=== PATIENT | female | born 1950 | race Caucasian/White ===

== ENCOUNTER 2017-04-20 22:19 | Emergency (ER) | payer MEDICARE, OTHER ==
[2017-04-20] MEDS ORDERED: Aspirin 81 MG Tab.Chew PO ONE (23:05)
[2017-04-20] MEDS ORDERED: Sodium Chloride 0.9% 10 ML Syringe FLUSH PRN (23:05)
[2017-04-20] MEDS ORDERED: Ondansetron 4 MG/2 ML SDV IVPUSH ONE (23:06)
--- NOTE | 2017-04-20 23:14 | EDM.PDOC ---
ED HPI GENERAL MEDICAL PROBLEM - General Chief Complaint: General Stated Complaint: NAUSEA,LEFT SHOULDER PAIN Time Seen by Provider: 04/20/17 22:50 Source of Information: Reports: Patient, Family History Limitations: Reports: No Limitations - History of Present Illness INITIAL COMMENTS - FREE TEXT/NARRATIVE: Lora presents today for complaints of nausea, midsternal chest pain with radiation to left shoulder and scapula that started today at 1630. She reports she drank some decaf coffee with creamer then suddenly developed nausea with the chest pain with feeling of weakness and hypertension of 183/113 per home monitoring device. She also complains of increase dyspnea with exertion the past two weeks. She did not take any medications for her discomfort today. She denies fever, chills, syncope, palpitations. Onset: Today Left Posterior Shoulder Pain Score (Numeric/FACES): 3 - Related Data Allergies Allergy/AdvReac Type Severity Reaction Status Date / Time azithromycin [From Zithromax] Allergy Itching Verified 07/02/14 04:28 peanut Allergy Hives Verified 07/02/14 04:28 Penicillins Allergy Respiratory Verified 07/02/14 04:28 Distress Home Meds: Home Meds Atenolol 12.5 mg PO DAILY 06/26/14 [History] Benzonatate [Benzonatate] 1 tab PO TID 06/26/14 [History] Furosemide [Furosemide] 1 tab PO ASDIRECTED 06/26/14 [History] Pravastatin [Pravachol] 1 tab PO DAILY 06/26/14 [History] Tiotropium [Spiriva Handihaler] 2 puff INH DAILY 06/26/14 [History] Albuterol [Ventolin HFA] 1 puff .XX ASDIRECTED PRN 04/20/17 [History] Fluticasone/Salmeterol [Advair 250-50 Diskus] 1 each IH BID 04/20/17 [History] Ranitidine HCl [Ranitidine] 150 mg PO BID 04/20/17 [History] Past Medical History HEENT History: Reports: Impaired Vision Respiratory History: Reports: Other (See Below) Other Respiratory History: alpha 1 Neurological History: Reports: Migraines - Infectious Disease History Infectious Disease History: Reports: Chicken Pox, Measles, Mumps - Past Surgical History GI Surgical History: Reports: Appendectomy Social & Family History - Tobacco Use Smoking Status *Q: Former Smoker Years of Tobacco use: 10 Used Tobacco, but Quit: Yes Month Tobacco Last Used: many years ago Second Hand Smoke Exposure: No - Caffeine Use Caffeine Use: Reports: Coffee - Alcohol Use Days Per Week of Alcohol Use: 0 - Recreational Drug Use Recreational Drug Use: No ED ROS GENERAL - Review of Systems Review Of Systems: See Below Constitutional: Reports: Decreased Appetite. Denies: Fever, Chills, Malaise, Weakness HEENT: Reports: No Symptoms Respiratory: Reports: Other (Increased SOB with activity. ). Denies: Wheezing, Pleuritic Chest Pain, Cough, Sputum Cardiovascular: Reports: Chest Pain, Dyspnea on Exertion, Other (Patient reports no change in chronic lower extremity edema. ). Denies: Blood Pressure Problem, Lightheadedness, Orthopnea, Palpitations, PND, Syncope Endocrine: Reports: No Symptoms GI/Abdominal: Reports: Abdominal Pain, Decreased Appetite, Nausea, Other (She complains of intermittent epigastric/abdominal pain. ). Denies: Black Stool, Bloody Stool, Constipation, Diarrhea, Difficulty Swallowing, Hematemesis, Vomiting : Reports: No Symptoms Musculoskeletal: Reports: No Symptoms Skin: Denies: Diaphoresis, Bruising, Pruritis, Rash, Erythema, Wound, Lesions Neurological: Denies: Headache, Numbness, Paresthesia, Tingling, Difficulty Walking, Weakness, Gait Disturbance Psychiatric: Reports: No Symptoms Hematologic/Lymphatic: Reports: No Symptoms Immunologic: Reports: No Symptoms ED EXAM, GENERAL - Physical Exam Exam: See Below Free Text/Narrative:: Lora is an alert, oriented 66 year old female presenting today with complaints of sudden onset nausea with chest pain radiating to left shoulder and scapula today at 1630. She denies pain at this time. She does report mild nausea. Exam Limited By: No Limitations General Appearance: Alert, WD/WN, No Apparent Distress Eye Exam: Bilateral Eye: EOMI, Normal Inspection, PERRL Ears: Normal External Exam, Normal Canal, Hearing Grossly Normal, Normal TMs Ear Exam: Bilateral Ear: Auricle Normal, Canal Normal, TM normal Nose: Normal Inspection, Normal Mucosa, No Blood Throat/Mouth: Normal Inspection, Normal Lips, Normal Oropharynx, Normal Voice, No Airway Compromise Head: Atraumatic, Normocephalic Neck: Normal Inspection, Supple, Non-Tender, Full Range of Motion. No: Lymphadenopathy (R), Lymphadenopathy (L) Respiratory/Chest: No Respiratory Distress, No Accessory Muscle Use, Chest Non- Tender, Decreased Breath Sounds. No: Rhonchi, Wheezing Cardiovascular: Normal Peripheral Pulses, Regular Rate, Rhythm, No Edema, No Murmur Peripheral Pulses: 2+: Radial (L), Radial (R), Dorsalis Pedis (L), Dorsalis Pedis (R) GI/Abdominal: Normal Bowel Sounds, Soft, Non-Tender, No Organomegaly, No Distention, No Mass Back Exam: Normal Inspection, Full Range of Motion. No: CVA Tenderness (R), CVA Tenderness (L) Extremities: Normal Inspection, Normal Range of Motion, Non-Tender, Normal Capillary Refill, Pedal Edema, Other (2+ lower bilateral edema, unchaged from chronic status. ) Neurological: Alert, Oriented, CN II-XII Intact, Normal Cognition, Normal Gait, No Motor/Sensory Deficits Psychiatric: Normal Affect, Normal Mood Skin Exam: Warm, Dry, Intact, Normal Color, No Rash Lymphatic: No Adenopathy EKG INTERPRETATION EKG Date: 04/20/17 (2308) Rhythm: NSR EKG Interpretation Comments: Left bundle branch block Course - Vital Signs Last Recorded V/S: Last Vital Signs Temp 37.2 C 04/20/17 22:22 Pulse 59 L 04/21/17 00:21 Resp 23 H 04/21/17 00:19 BP 128/89 04/21/17 00:21 Pulse Ox 95 04/21/17 00:19 - Orders/Labs/Meds Orders: Active Orders 24 hr Category Date Time Status EKG Documentation Completion [RC] ASDIRECTED Care 04/20/17 23:06 Active Chest 2V [CR] Stat Exams 04/20/17 23:05 Taken Sodium Chloride 0.9% [Normal Saline] 1,000 ml Med 04/21/17 00:15 Active IV ASDIRECTED Sodium Chloride 0.9% [Saline Flush] Med 04/20/17 23:05 Active 10 ml FLUSH ASDIRECTED PRN Saline Lock Insert [OM.PC] Routine Oth 04/20/17 23:05 Ordered EKG 12 Lead [EK] Routine Ther 04/20/17 23:05 Ordered Medication Orders Sodium Chloride (Normal Saline) 1,000 mls @ 150 mls/hr IV ASDIRECTED ALEJANDRO Sodium Chloride (Saline Flush) 10 ml FLUSH ASDIRECTED PRN PRN Reason: Keep Vein Open Last Admin: 04/20/17 23:17 Dose: 10 ml Labs: Laboratory Tests 04/20/17 04/20/17 04/21/17 Range/Units 23:16 23:16 00:14 WBC 14.5 H (4.5-11.0) K/uL RBC 5.15 (3.30-5.50) M/uL Hgb 15.7 H D (12.0-15.0) g/dL Hct 45.3 (36.0-48.0) % MCV 88 (80-98) fL MCH 31 (27-31) pg MCHC 35 (32-36) % Plt Count 275 (150-400) K/uL Neut % (Auto) 87 H (36-66) % Lymph % (Auto) 5 L (24-44) % [place] % (Auto) 8 H (2-6) % Eos % (Auto) 1 L (2-4) % Baso % (Auto) 0 (0-1) % Sodium 137 L (140-148) mmol/L Potassium 4.0 (3.6-5.2) mmol/L Chloride 101 (100-108) mmol/L Carbon Dioxide 24 (21-32) mmol/L Anion Gap 16.0 H (5.0-14.0) mmol/L BUN 14 (7-18) mg/dL Creatinine 1.0 (0.6-1.0) mg/dL Est Cr Clr Drug Dosing 46.40 mL/min Estimated GFR (MDRD) 56 L (>60) Glucose 119 H (74-106) mg/dL Calcium 8.8 (8.5-10.1) mg/dL Total Bilirubin 0.9 (0.2-1.0) mg/dL AST 31 (15-37) U/L ALT 34 (12-78) U/L Alkaline Phosphatase 93 (46-116) U/L Troponin I 0.044 (0.000-0.056) ng/mL NT-Pro-B Natriuret Pep 2119 H (5-125) pg/mL Total Protein 7.2 (6.4-8.2) g/dL Albumin 4.0 (3.4-5.0) g/dL Globulin 3.2 (2.3-3.5) g/dL Albumin/Globulin Ratio 1.3 (1.2-2.2) Amylase 46 (25-115) U/L Lipase 104 (73-393) U/L Urine Color Urine Appearance Urine pH (4.5-8.0) Ur Specific [place] (1.008-1.030) Urine Protein (NEGATIVE) mg/dL Urine Glucose (UA) (NEGATIVE) mg/dL Urine Ketones (NEGATIVE) mg/dL Urine Occult Blood (NEGATIVE) Urine Nitrite (NEGATIVE) Urine Bilirubin (NEGATIVE) Urine Urobilinogen (NORMAL) mg/dL Ur Leukocyte Esterase (NEGATIVE) Urine RBC (0-5) Urine WBC (0-5) Ur Epithelial Cells Amorphous Sediment Urine Bacteria Urine Mucus 04/21/17 Range/Units 00:14 WBC (4.5-11.0) K/uL RBC (3.30-5.50) M/uL Hgb (12.0-15.0) g/dL Hct (36.0-48.0) % MCV (80-98) fL MCH (27-31) pg MCHC (32-36) % Plt Count (150-400) K/uL Neut % (Auto) (36-66) % Lymph % (Auto) (24-44) % [place] % (Auto) (2-6) % Eos % (Auto) (2-4) % Baso % (Auto) (0-1) % Sodium (140-148) mmol/L Potassium (3.6-5.2) mmol/L Chloride (100-108) mmol/L Carbon Dioxide (21-32) mmol/L Anion Gap (5.0-14.0) mmol/L BUN (7-18) mg/dL Creatinine (0.6-1.0) mg/dL Est Cr Clr Drug Dosing mL/min Estimated GFR (MDRD) (>60) Glucose (74-106) mg/dL Calcium (8.5-10.1) mg/dL Total Bilirubin (0.2-1.0) mg/dL AST (15-37) U/L ALT (12-78) U/L Alkaline Phosphatase (46-116) U/L Troponin I (0.000-0.056) ng/mL NT-Pro-B Natriuret Pep (5-125) pg/mL Total Protein (6.4-8.2) g/dL Albumin (3.4-5.0) g/dL Globulin (2.3-3.5) g/dL Albumin/Globulin Ratio (1.2-2.2) Amylase (25-115) U/L Lipase (73-393) U/L Urine Color Yellow Urine Appearance Clear Urine pH 6.0 (4.5-8.0) Ur Specific [place] 1.010 (1.008-1.030) Urine Protein Negative (NEGATIVE) mg/dL Urine Glucose (UA) Normal (NEGATIVE) mg/dL Urine Ketones Negative (NEGATIVE) mg/dL Urine Occult Blood Negative (NEGATIVE) Urine Nitrite Negative (NEGATIVE) Urine Bilirubin Negative (NEGATIVE) Urine Urobilinogen Normal (NORMAL) mg/dL Ur Leukocyte Esterase Negative (NEGATIVE) Urine RBC 0-5 (0-5) Urine WBC 0-5 (0-5) Ur Epithelial Cells Few Amorphous Sediment Not seen Urine Bacteria Few Urine Mucus Not seen Lab work reviewed with Irma Moulton NP Heart score 6 Patient and her notified of findings. Will attempt to transfer patient to [facility] for further care. Meds: Medications Generic Name Dose Route Start Last Admin Trade Name Freq PRN Reason Stop Dose Admin Sodium Chloride 1,000 mls @ 150 mls/hr 04/21/17 00:15 Normal Saline IV ASDIRECTED ALEJANDRO Sodium Chloride 10 ml 04/20/17 23:05 04/20/17 23:17 Saline Flush FLUSH 10 ml ASDIRECTED PRN Administration Keep Vein Open Discontinued Medications Generic Name Dose Route Start Last Admin Trade Name Freq PRN Reason Stop Dose Admin Aspirin 324 mg 04/20/17 23:05 04/20/17 23:15 Aspirin PO 04/20/17 23:06 324 mg ONETIME ONE Administration Nitroglycerin 0.4 mg 04/21/17 00:13 04/21/17 00:19 Nitrostat SL 04/21/17 00:14 0.4 mg ONETIME ONE Administration Ondansetron HCl 4 mg 04/20/17 23:06 04/20/17 23:15 Zofran IVPUSH 04/20/17 23:07 4 mg ONETIME ONE Administration - Radiology Interpretation Free Text/Narrative:: Chest x-ray wet read, bilateral lower infiltrates when compared to most recent chest x-ray in 2012. Radiologist read pending. - Re-Assessments/Exams Free Text/Narrative Re-Assessment/Exam: 04/21/17 00:25 Case discussed with Irma Moulton NP. Patient will be transferred to higher level of care. Patient and her in agreement. Departure - Departure Time of Disposition: 00:43 Disposition: DC/Tfer to Acute Hospital 02 Condition: Fair Clinical Impression: Chest pain, rule out acute myocardial infarction - Discharge Information Referrals: Chava Quintero MD [Primary Care Provider] - Forms: ED Department Discharge - My Orders Last 24 Hours: My Active Orders 04/20/17 23:05 Chest 2V [CR] Stat Sodium Chloride 0.9% [Saline Flush] 10 ml FLUSH ASDIRECTED PRN Saline Lock Insert [OM.PC] Routine EKG 12 Lead [EK] Routine 04/20/17 23:06 EKG Documentation Completion [RC] ASDIRECTED - Assessment/Plan Last 24 Hours: My Active Orders 04/20/17 23:05 Chest 2V [CR] Stat Sodium Chloride 0.9% [Saline Flush] 10 ml FLUSH ASDIRECTED PRN Saline Lock Insert [OM.PC] Routine EKG 12 Lead [EK] Routine 04/20/17 23:06 EKG Documentation Completion [RC] ASDIRECTED
[2017-04-21] MEDS ORDERED: Nitroglycerin 0.4 MG Tab.SL SL ONE (00:13)
[2017-04-21] MEDS ORDERED: Sodium Chloride 0.9% 1,000 ML IV SCH (00:15)
[2017-04-21 02:43] VITALS: BP 130/81
--- NOTE | 2017-04-21 08:46 | CR ---
Chest 2V INDICATION: SOB, Chest pain FINDINGS: Comparison 11/02/2014. Mild hyperinflation. Mild cardiac enlargement with pulmonary venous h ypertension, stable. Stable interstitial densities in the lung bases. There is superimposed increased density in the right lung base, worrisome for pneumonia. Follow-up chest x-ray in 4-6 weeks recommended.
== END 2017-04-21 02:20 ==
LOC: JP.ED 22:19
DX: R07.2 Precordial pain (principal); Z87.891 Personal history of nicotine dependence; Z79.899 Other long term (current) drug therapy; Z88.0 Allergy status to penicillin; Z88.1 Allergy status to other antibiotic agents; Z91.012 Allergy to eggs
CPT/HCPCS: 36415; 71020; 80053; 81001; 82150; 83690; 83880; 84484; 85025; 93005; 96361; 96374; 99284; A9270; J2405; J7040; J7050; 93010

== ENCOUNTER 2017-08-20 03:03 | Inpatient (IN) | payer MEDICARE, OTHER ==
[2017-08-20] MEDS ORDERED: Albuterol 0.083% 2.5 MG/3 ML Neb Soln ONE (03:10)
[2017-08-20] MEDS ORDERED: Budesonide 0.5 MG/2 ML Neb Susp NEB ONE (03:20)
[2017-08-20] MEDS ORDERED: Morphine 2 MG/ML Syringe IVPUSH ONE (03:40)
[2017-08-20] MEDS ORDERED: Albuterol 0.083% 2.5 MG/3 ML Neb Soln NEB ONE (03:51)
--- NOTE | 2017-08-20 03:51 | EDM.PDOC ---
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 Tried taking [place] home without relief. No chest pain no abdominal pain nausea or vomiting No fever chills or recent infection However she was seen for tachycardia in the clinic 6 days ago, found to have atrial fibrillation. transferred to [place] where she underwent coronary angiogram 5 days ago, which was "good". Anticoagulated and cardioversion 4 days ago, back to [facility]. - Related Data Allergies Allergy/AdvReac Type Severity Reaction Status Date / Time azithromycin [From Zithromax] Allergy Itching Verified 08/20/17 03:10 peanut Allergy Hives Verified 07/02/14 04:28 Penicillins Allergy Respiratory Verified 08/20/17 03:10 Distress Home Meds: Home Meds Benzonatate [Benzonatate] 1 tab PO TID 06/26/14 [History] Furosemide [Furosemide] 1 tab PO DAILY 06/26/14 [History] Pravastatin [Pravachol] 1 tab PO DAILY 06/26/14 [History] Albuterol [Ventolin HFA] 1 puff INH ASDIRECTED PRN 04/20/17 [History] Fluticasone/Salmeterol [Advair 250-50 Diskus] 1 each IH BID 04/20/17 [History] Ranitidine HCl [Ranitidine] 150 mg PO BID 04/20/17 [History] Aspirin [Children's Aspirin] 81 mg PO DAILY 08/20/17 [History] SUMAtriptan 100 mg PO ASDIRECTED 08/20/17 [History] Past Medical History HEENT History: Reports: Impaired Vision Cardiovascular History: Reports: Afib Other Cardiovascular History: angioplasty cardioversion Respiratory History: Reports: Other (See Below) Other Respiratory History: alpha 1 Neurological History: Reports: Migraines - Infectious Disease History Infectious Disease History: Reports: Chicken Pox, Measles, Mumps - Past Surgical History GI Surgical History: Reports: Appendectomy Social & Family History - Tobacco Use Smoking Status *Q: Former Smoker Years of Tobacco use: 10 Used Tobacco, but Quit: Yes Month Tobacco Last Used: many years ago Second Hand Smoke Exposure: No - Caffeine Use Caffeine Use: Reports: Coffee - Alcohol Use Days Per Week of Alcohol Use: 0 - Recreational Drug Use Recreational Drug Use: No ED ROS GENERAL - Review of Systems Review Of Systems: See Below Constitutional: Reports: Diaphoresis. Denies: Fever, Chills HEENT: Reports: Rhinitis. Denies: Eye Discharge, Eye Pain, Throat Pain Respiratory: Reports: Shortness of Breath, Wheezing Cardiovascular: Reports: Dyspnea on Exertion. Denies: Chest Pain Endocrine: Reports: Fatigue GI/Abdominal: Reports: No Symptoms : Reports: No Symptoms Neurological: Reports: No Symptoms ED EXAM, GENERAL - Physical Exam Exam: See Below Exam Limited By: Respiratory Distress (Using C Pap from EMS) Eye Exam: Bilateral Eye: Normal Inspection Ears: Normal External Exam, Hearing Grossly Normal Nose: Normal Inspection, Normal Mucosa Throat/Mouth: Normal Inspection, Normal Oropharynx Head: Atraumatic Neck: Normal Inspection Respiratory/Chest: Respiratory Distress, Decreased Breath Sounds, Wheezing Cardiovascular: Normal Peripheral Pulses, Regular Rate, Rhythm Course - Vital Signs Last Recorded V/S: Last Vital Signs Temp 36.4 C 08/20/17 03:24 Pulse 67 08/20/17 04:13 Resp 20 08/20/17 04:13 BP 160/93 H 08/20/17 04:13 Pulse Ox 96 08/20/17 04:13 - Orders/Labs/Meds Orders: Active Orders 24 hr Category Date Time Status BIPAP Adult [RT BiPAP/CPAP] [RC] ASDIRECTED Care 08/20/17 03:17 Active EKG Documentation Completion [RC] ASDIRECTED Care 08/20/17 03:21 Active Oxygen Therapy [RC] ASDIRECTED Care 08/20/17 03:18 Active RT Aerosol Therapy [RC] ASDIRECTED Care 08/20/17 03:20 Active RT Aerosol Therapy [RC] ASDIRECTED Care 08/20/17 03:52 Active Chest 1V Frontal [CR] Stat Exams 08/20/17 03:17 Taken EKG 12 Lead [EK] Routine Ther 08/20/17 03:21 Ordered Labs: Laboratory Tests 08/20/17 08/20/17 08/20/17 Range/Units 03:16 03:17 03:17 WBC 11.3 H (4.5-11.0) K/uL RBC 5.62 H (3.30-5.50) M/uL Hgb 16.9 H (12.0-15.0) g/dL Hct 49.7 H (36.0-48.0) % MCV 88 (80-98) fL MCH 30 (27-31) pg MCHC 34 (32-36) % Plt Count 304 (150-400) K/uL ABG Hemoglobin (12.0-16.0) g/dL ABG Oxyhemoglobin % ABG Carboxyhemoglobin (0.0-1.6) % ABG Methemoglobin % VBG pH (7.350-7.450) VBG pCO2 mm/Hg VBG pO2 mm/Hg VBG HCO3 mmol/L VBG Total CO2 mmol/L VBG O2 Saturation VBG O2 Content %vol VBG Base Excess mm/L O2 Delivery Device Sodium 134 L (140-148) mmol/L Potassium 4.9 (3.6-5.2) mmol/L Chloride 98 L (100-108) mmol/L Carbon Dioxide 24 (21-32) mmol/L Anion Gap 16.9 H (5.0-14.0) mmol/L BUN 11 (7-18) mg/dL Creatinine 1.1 H (0.6-1.0) mg/dL Est Cr Clr Drug Dosing 41.62 mL/min Estimated GFR (MDRD) 50 L (>60) Glucose 294 H (74-106) mg/dL Calcium 9.2 (8.5-10.1) mg/dL Troponin I 0.085 H* (0.000-0.056) ng/mL NT-Pro-B Natriuret Pep (5-125) pg/mL 08/20/17 08/20/17 Range/Units 03:18 03:58 WBC (4.5-11.0) K/uL RBC (3.30-5.50) M/uL Hgb (12.0-15.0) g/dL Hct (36.0-48.0) % MCV (80-98) fL MCH (27-31) pg MCHC (32-36) % Plt Count (150-400) K/uL ABG Hemoglobin 17.2 H (12.0-16.0) g/dL ABG Oxyhemoglobin 41.9 % ABG Carboxyhemoglobin 0.6 (0.0-1.6) % ABG Methemoglobin 0.5 % VBG pH 7.313 L (7.350-7.450) VBG pCO2 50.2 mm/Hg VBG pO2 28.9 mm/Hg VBG HCO3 24.7 mmol/L VBG Total CO2 21.8 mmol/L VBG O2 Saturation 42.4 VBG O2 Content 10.1 %vol VBG Base Excess -1.9 mm/L O2 Delivery Device Cpap Sodium (140-148) mmol/L Potassium (3.6-5.2) mmol/L Chloride (100-108) mmol/L Carbon Dioxide (21-32) mmol/L Anion Gap (5.0-14.0) mmol/L BUN (7-18) mg/dL Creatinine (0.6-1.0) mg/dL Est Cr Clr Drug Dosing mL/min Estimated GFR (MDRD) (>60) Glucose (74-106) mg/dL Calcium (8.5-10.1) mg/dL Troponin I (0.000-0.056) ng/mL NT-Pro-B Natriuret Pep 6711 H (5-125) pg/mL Meds: Medications Discontinued Medications Generic Name Dose Route Start Last Admin Trade Name Vee PRN Reason Stop Dose Admin Albuterol Confirm 08/20/17 03:10 08/20/17 03:28 Proventil Neb Soln Administered 08/20/17 03:11 2.5 mg Dose Administration 2.5 mg .ROUTE .STK-MED ONE Albuterol 2.5 mg 08/20/17 03:51 08/20/17 04:01 Proventil Neb Soln NEB 08/20/17 03:52 Not Given ONETIME ONE Budesonide 0.5 mg 08/20/17 03:20 08/20/17 03:28 Pulmicort NEB 08/20/17 03:21 0.5 mg ONETIME ONE Administration Furosemide 40 mg 08/20/17 03:58 08/20/17 04:07 Lasix IVPUSH 08/20/17 03:59 40 mg ONETIME ONE Administration Morphine Sulfate 2 mg 08/20/17 03:40 08/20/17 03:43 Morphine IVPUSH 08/20/17 03:41 2 mg ONETIME ONE Administration - Re-Assessments/Exams Free Text/Narrative Re-Assessment/Exam: 08/20/17 03:53 67-year-old female with alpha-1 antitrypsin deficiency and resultant COPD, presenting with acute increased shortness of breath tonight. Albuterol 2.5 mg by nebulizer, budesonide 0.5 mg by nebulizer She has already received IV Solu-Medrol Continue oxygen Start BiPAP 08/20/17 04:23 Chest x-ray shows pulmonary congestion/CHF by my interpretation BNP is elevated 6711 Mild elevation of troponin but she did not just undergo angiogram and cardioversion GFR creatinine essentially unchanged from previous EKG on my interpretation shows nonspecific conduction delay possibly left bundle branch block, essentially unchanged from previous EKG Furosemide 40 mg IV Patient appears to be finally improving Admit for CHF Departure - Departure Time of Disposition: 04:29 Disposition: Admitted As Inpatient 67 Condition: Good Clinical Impression: Congestive heart failure Qualifiers: Heart failure type: unspecified Heart failure chronicity: acute on chronic Qualified Code(s): I50.9 - Heart failure, unspecified - Discharge Information Referrals: Chava Quintero MD [Primary Care Provider] - - My Orders Last 24 Hours: My Active Orders 08/20/17 03:17 BIPAP Adult [RT BiPAP/CPAP] [RC] ASDIRECTED Chest 1V Frontal [CR] Stat 08/20/17 03:18 Oxygen Therapy [RC] ASDIRECTED 08/20/17 03:20 RT Aerosol Therapy [RC] ASDIRECTED 08/20/17 03:21 EKG Documentation Completion [RC] ASDIRECTED EKG 12 Lead [EK] Routine 08/20/17 03:52 RT Aerosol Therapy [RC] ASDIRECTED - Assessment/Plan Last 24 Hours: My Active Orders 08/20/17 03:17 BIPAP Adult [RT BiPAP/CPAP] [RC] ASDIRECTED Chest 1V Frontal [CR] Stat 08/20/17 03:18 Oxygen Therapy [RC] ASDIRECTED 08/20/17 03:20 RT Aerosol Therapy [RC] ASDIRECTED 08/20/17 03:21 EKG Documentation Completion [RC] ASDIRECTED EKG 12 Lead [EK] Routine 08/20/17 03:52 RT Aerosol Therapy [RC] ASDIRECTED
[2017-08-20] MEDS ORDERED: Furosemide 40 MG/4 ML VIAL IVPUSH ONE (03:58)
[2017-08-20] MEDS ORDERED: Sodium Chloride 0.9% 100 ML IV SCH (07:15)
[2017-08-20] MEDS ORDERED: Iopamidol 755 Mg/ML 100 ML Bottle IV SCH (07:15)
[2017-08-20] MEDS ORDERED: Apixaban 5 MG Tab PO ONE (08:00)
[2017-08-20] MEDS: Budesonide 0.5 MG/2 ML Neb Susp NEB SCH ×2 (08:25→20:25)
[2017-08-20] MEDS: Albuterol 0.083% 2.5 MG/3 ML Neb Soln NEB SCH ×3 (08:26→18:49)
--- NOTE | 2017-08-20 09:29 | CR ---
CHEST: AP portable CLINICAL HISTORY:Shortness of breath, wheezing COMPARISON:04/20/2017 FINDINGS: The pulmonary vascular is cephalized and increased since prior studies. There is diffuse i nterstitial edema and some alveolar infiltrate bilaterally most consistent with pulmonary edema. No s ignificant effusions are seen. Lungs are generally hyperaerated. IMPRESSION: Pulmonary edema from CHF superimposed over COPD
--- NOTE | 2017-08-20 09:43 | CT ---
Ang Chest CLINICAL HISTORY: Acute exacerbation of chronic dyspnea TECHNIQUE: Thin section axial contiguous tomographic sections were taken through the chest before and after bolus IV iodinated contrast administration. Coronal and sagittal images were reconstructed. A uto dosage reduction and iterative reconstruction techniques employed. Total DLP 376 FINDINGS: The lungs are hyperaerated. There are diffuse scattered bullae. There are scattered areas o f bronchiectasis and some bronchial thickening. There are diffusely scattered groundglass opacities b ilaterally in both the upper and lower lobes. There are scattered areas of pleural parenchymal scarri ng and some streaky atelectasis in both lung bases. There are small bilateral pleural effusions. There are no suspicious filling defects in the pulmonary arteries. The aorta is less than optimally o pacified. The aortic arch is mildly prominent due to atheromatous changes. There is no obvious dissec tion. No mediastinal mass or lymphadenopathy is identified. Scans of the upper abdomen show no mass o r adenopathy. IMPRESSION: No evidence of pulmonary embolus Moderate changes of COPD with moderate bullous changes, bronchiectasis and some areas of bronchial t hickening Diffuse bilateral groundglass opacities are suspect for superimposed pneumonitis. Mild pulmonary michele a from CHF is felt less likely. Small bilateral pleural effusions
[2017-08-20] MEDS: Aspirin 81 MG Tab.Chew PO SCH (09:56)
[2017-08-20] MEDS: Pravastatin 20 MG Tab PO SCH (09:56)
[2017-08-20] MEDS: Metoprolol Succinate 50 MG Tab.ER PO SCH (09:57)
[2017-08-20] MEDS: Apixaban 5 MG Tab PO SCH ×2 (09:58→20:26)
--- NOTE | 2017-08-20 10:24 | US ---
VL Duplex Lwr Ext Veins Comp INDICATION: Chronic dyspnea COMPARISON: None. FINDINGS: Ultrasound of Right/left/both/extremity performed for evaluation of deep venous thrombosis as well as venous incompetence. The common femoral, femoral, popliteal, greater saphenous, and small saphenous veins evaluated. Accessory and insurance healthcare consultant veins evaluated where visualized. RIGHT LEG: No evidence of deep venous thrombosis. There is normal flow, augmentation and compressibility. LEFT LEG: No evidence of deep venous thrombosis. There is normal flow, augmentation and compressibility. IMPRESSION: 1. No evidence of deep venous thrombosis in either lower extremity.
[2017-08-20] MEDS: Furosemide 40 MG Tab PO SCH ×2 (11:54→20:26)
--- NOTE | 2017-08-20 12:28 | HP ---
IDENTIFYING DATA: Lora Ball is a 67-year-old female from [place]. CHIEF COMPLAINT: Acute exacerbation of chronic shortness of breath. 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 She is followed by Pulmonary Medicine Services at [facility] in [place] and uses inhaled therapies as well as Glassia injections as maintenance therapy. She was recently admitted to [facility] in [place] with an episode of paroxysmal atrial fibrillation secondary to underlying respiratory disease and was managed with cardioversion and initiation of anticoagulant therapy. During hospital stay, she underwent cardiac catheterization, having a noted mildly elevated troponin. She was not found to have evidence of significant coronary artery disease and rise in troponin was felt to be secondary to stress ischemia of her underlying atrial fibrillation. She was discharged home on ongoing anticoagulant therapy with use of apixaban as well as lisinopril and metoprolol. She is on low-dose aspirin and denies cardiac palpitations. Through the week, she has had mild increase in her dyspneic symptoms, which became more acute yesterday evening at 2300 hours. She denied chest pain, palpitations or syncope, though did have dizziness with her acute worsening of shortness of breath when she was up to the bathroom. She was transferred to the emergency room. En route, BiPAP was initiated for reasons of hypoxia. She denied pleuritic pain, fevers, chills or recent acute respiratory infections. No hemoptysis or purulent sputum production. She is a nonsmoker. IMMUNIZATIONS: Including influenza and pneumococcal vaccines are current. Now on BiPAP, she notes a decrease in her dyspnea. PAST MEDICAL HISTORY: As noted, she has an alpha-1 antitrypsin deficiency and recent hospitalization for atrial fibrillation. She does have a history of recurring dyspepsia, managed with use of scheduled ranitidine. Intermittent migraines are managed with abortive therapy using sumatriptan. ALLERGIES: REPORTED TO AZITHROMYCIN, PEANUTS, AND PENICILLIN. CURRENT MEDICATIONS: 1. Apixaban 5 mg b.i.d. 2. Advair Diskus 100/50 mcg one puff twice daily. 3. Albuterol metered-dose inhaler two puffs q.4 hours p.r.n. 4. Aspirin 81 mg daily. 5. Black cohosh 80 mg two tablets daily. 6. Calcium carbonate with magnesium 250/300 mg two tablets daily. 7. Coenzyme Q 100 mg daily. 8. Furosemide 20 mg daily. 9. Glassia injections 1000 mg infusion every 4 weeks. 10.Multivitamins one daily. 11.[place]-3 fatty acid 1000 mg daily. 12.Pravastatin 40 mg daily. 13.Ranitidine 150 mg b.i.d. 14.Sumatriptan 100 mg p.r.n. migraine. HABITS: Nonsmoker. Infrequent use of alcohol at less than one drink per week. Caffeine intake averages 1 to 2 cups of coffee or decaf coffee on a daily basis. IMMUNIZATIONS: Including tetanus, pneumococcal, and influenza vaccines are current. SOCIAL HISTORY: Retired. Residing with her in their private dwelling. She does use oxygen on a p.r.n. basis with nasal cannula administration. FAMILY HISTORY: Notes a son has a history of hypertrophic cardiomyopathy with heart failure identified in adolescence. He has had accompanying valve replacements and is now on the wait list for cardiac transplant in his current state of residence in [place]. Additionally, a grandson has a recognized history of hypertrophic cardiomyopathy without active limiting disease. A sister of cerebellar degeneration. She reports her mother had a history of asthmatic lung disease. No other known family history of alpha-1 antitrypsin deficiency. REVIEW OF SYSTEMS: NEUROLOGIC: No history of stroke, seizures, focal weakness, tremor, glaucoma, or retinopathy. She does wear corrective lenses. Hearing is intact. CARDIAC: Paroxysmal atrial fibrillation with mild congestive heart failure. No history of ischemic heart disease, [place], or diabetes. Does have dependent edema. RESPIRATORY: Alpha-1 antitrypsin deficiency with accompanying COPD. No recent acute respiratory illnesses. Denied pleuritic pain or hemoptysis. GI: Dyspepsia, is managed with H2 madison therapy. No nausea, emesis, hematemesis, hepatitis, jaundice, diarrhea, or melena. : No urinary incontinence. Renal function has been acceptable. MUSCULOSKELETAL: Occasional arthralgias in the back and knees. PHYSICAL EXAMINATION: GENERAL: Appearance is that of an adult female, now resting comfortably on the hospital bed. VITAL SIGNS: Initial vitals include a temperature of 36.4, respiratory rate 20, blood pressure 160/93, pulse 67, and O2 sats 96% with BiPAP therapy. HEENT: Sclerae anicteric. Extraocular eye movements are intact. No oropharyngeal lesions. Hearing is intact. NECK: Brisk carotid pulses. No bruits or JVD. No thyromegaly. LUNGS: Clear, resonant, non-tachypneic, and symmetrical aeration. Decreased breath sounds are noted without wheezes or rhonchi. HEART: Regular, sinus rhythm by cardiac monitoring. No evidence of recurrent atrial fibrillation by cardiac review. ABDOMEN: Soft, nontender, and nondistended. No organomegaly. Good femoral pulses. EXTREMITIES: Chronic mild edematous changes at the legs. Good arterial pulses. SKIN: Cool and pink, non-diaphoretic. Brisk capillary refill. LABORATORY DATA: On admission; WBC 11.3, hemoglobin 16.9, and hematocrit 49.7 with platelet count of 304,000. Sodium 134, potassium 4.9, BUN 11, creatinine 1.1, glucose is elevated at 294 with a calcium of 9.2. Troponin is borderline elevated at 0.085. ProBNP has risen at 6711. Venous blood gases include a pH of 7.3, pCO2 of 50, PO2 of 28.9 with normal carboxyhemoglobin. IMAGING: Chest x-ray, a suggestion of acute pulmonary edema. IMPRESSION: 1. History of chronic obstructive pulmonary disease with alpha-1 antitrypsin deficiency, presenting with acute exacerbation of chronic dyspnea. 2. Noted history of paroxysmal atrial fibrillation with recent hospitalization requiring cardioversion, sinus rhythm by current cardiac monitoring. 3. Recent cardiac catheterization without evidence of coronary artery disease. 4. Chronic dyspepsia, controlled with H2 madison therapies. 5. Intermittent migraines, managed with the use of abortive sumatriptan therapies. PLAN: The patient is admitted to the medical floor. We have been able to discontinue BiPAP. We will provide oxygen by nasal cannula at 3 L/minute. Monitor on continuous oximetry and telemetry. Ambulate with assistance. Continue with home medication including beta madison, inhaled therapies, and inhaled steroids. To exclude the possibility of DVT and/or pulmonary emboli even while on anticoagulant therapy, CT of the chest with PE protocol, venous Dopplers and D-dimer are requested today. We will follow up on its completion. Anticipate hospital stay of less than 96 hours. Full code status to be maintained. Provide a low-sodium diet. John Quintero MD /[id number]
[2017-08-20] MEDS ORDERED: Acetaminophen 325 MG Tab PO PRN (15:38)
[2017-08-20] MEDS ORDERED: SUMAtriptan 50 MG Tab PO PRN (18:41)
[2017-08-21] MEDS: Albuterol 0.083% 2.5 MG/3 ML Neb Soln NEB SCH ×3 (02:06→13:55)
[2017-08-21] MEDS: Budesonide 0.5 MG/2 ML Neb Susp NEB SCH (07:21)
[2017-08-21] MEDS: Pravastatin 20 MG Tab PO SCH (08:30)
[2017-08-21] MEDS: Apixaban 5 MG Tab PO SCH (08:31)
[2017-08-21] MEDS: Aspirin 81 MG Tab.Chew PO SCH (08:31)
[2017-08-21] MEDS: Metoprolol Succinate 50 MG Tab.ER PO SCH (08:31)
[2017-08-21] MEDS: Furosemide 40 MG Tab PO SCH (08:32)
[2017-08-21 13:28] VITALS: BP 102/62
[2017-08-21] MEDS ORDERED: Polyethylene Glycol 3350 Powder 17 GM Packet PO ONE (14:00)
--- NOTE | 2017-08-21 14:05 | CR ---
CHEST: 2 view CLINICAL HISTORY:Cough and dyspnea COMPARISON:08/20/2017 FINDINGS: Lungs are hyperaerated. There are minimal bilateral pleural effusions. Previously seen vas cular congestion and pulmonary edema has resolved. IMPRESSION: Resolution of pulmonary edema. Multiple bibasilar effusions COPD
--- NOTE | 2017-08-21 15:55 | PCM.DCSUM1 ---
Discharge Summary - Hospital Course Brief History: Ms. Ball is a 67-year-old woman who is admitted through the emergency department with shortness of breath and hypoxia secondary to fluid overload with pulmonary edema and peripheral edema. - Discharge Data Discharge Date: 08/21/17 Discharge Disposition: Home, Self-Care 01 Condition: Fair - Discharge Diagnosis/Problem(s) (1) COPD (chronic obstructive pulmonary disease) SNOMED Code(s): 95799444 ICD Code: J44.9 - CHRONIC OBSTRUCTIVE PULMONARY DISEASE, UNSPECIFIED Status : Acute (2) [id number] deficiency SNOMED Code(s): 54904006 ICD Code: E88.01 - [id number] DEFICIENCY Status: Acute (3) Pulmonary edema SNOMED Code(s): 00875501 ICD Code: J81.1 - CHRONIC PULMONARY EDEMA Status: Acute (4) Diastolic CHF SNOMED Code(s): 671919188 ICD Code: I50.30 - UNSPECIFIED DIASTOLIC (CONGESTIVE) HEART FAILURE Status : Acute - Patient Summary/Data Hospital Course: Ms. Ball is a 67-year-old woman with a known history of COPD secondary to alpha -1 anti-trypsin deficiency. She has had recent difficulty with atrial fibrillation and was seen and evaluated in [place]. She was hospitalized and underwent elective electrical cardioversion, during that hospitalization did receive a fair amount of IV fluids. Over the past week prior to admission she noted further increase in fluid retention with increased peripheral edema and progressive increase in shortness of breath. She was seen and evaluated in the emergency department, on initial assessment did have hypoxia. Chest x-ray was obtained which showed evidence of significant pulmonary edema. CT scan of the chest was obtained and showed no evidence of pulmonary emboli but did also documented pulmonary edema as well as small bilateral oral effusions. She has no prior history of significant congestive heart failure, recent assessments have shown normal left ventricular function. [place] that she is likely has a component of diastolic congestive failure causing current findings. Initially she was placed on BiPAP in the emergency department and did receive IV furosemide. With these interventions she had a good diuresis and noted significant improvement in her shortness of breath. She was given further diuretic therapy during the hospitalization and by the time of discharge chest x -ray showed that her pulmonary edema and essentially resolved although there were still small bilateral pleural effusions. Peripheral edema had also resolved. She will be discharged home on the strict 2 g sodium diet as well as increased diuretic therapy. I did spend some time reviewing with her the importance of following a low-sodium diet. Activity will be as tolerated, follow -up appointment will be scheduled with primary care provider within one week. Follow-up appointment will also be scheduled with her financial adviser. - Patient Instructions Diet: Low Sodium Activity: As Tolerated Other/Special Instructions: Please schedule follow-up appointment with primary care provider within one week. Patient should monitor blood pressures regularly , record results, and bring to follow-up appointment. BMP should be obtained at the time of follow-up appointment. Please schedule follow-up appointment with her financial adviser in the [facility]. - Discharge Plan Prescriptions/Med Rec: Furosemide [Lasix] 40 mg PO DAILY #30 tablet Home Medications: Home Meds Benzonatate 1 tab PO TID PRN 06/26/14 [History] Pravastatin [Pravachol] 1 tab PO DAILY 06/26/14 [History] Albuterol [Ventolin HFA] 1 puff INH ASDIRECTED PRN 04/20/17 [History] Fluticasone/Salmeterol [Advair 250-50 Diskus] 1 each IH BID 04/20/17 [History] Ranitidine HCl [Ranitidine] 150 mg PO BID 04/20/17 [History] Milzz-7-Ibezpcivem Inhibitor [Glassia] 1 gm IV WEEKLY 08/20/17 [History] Apixaban [Eliquis] 5 mg PO BID 08/20/17 [History] Aspirin [Children's Aspirin] 81 mg PO DAILY 08/20/17 [History] Black Cohosh 80 mg PO DAILY 08/20/17 [History] Lisinopril 2.5 mg PO DAILY 08/20/17 [History] [place]-3 Fatty Acids [Maxepa] 1,000 mg PO DAILY 08/20/17 [History] SUMAtriptan 100 mg PO ASDIRECTED 08/20/17 [History] Ubidecarenone [Coenzyme Q10] 100 mg PO DAILY 08/20/17 [History] Furosemide [Lasix] 40 mg PO DAILY #30 tablet 08/21/17 [Rx] Referrals: Chava Quintero MD [Primary Care Provider] - 08/26/17 1:40 pm - Patient Data Vitals - Most Recent: Last Vital Signs Temp 97.5 F 08/21/17 13:28 Pulse 61 08/21/17 13:28 Resp 20 08/21/17 13:28 BP 102/62 08/21/17 13:28 Pulse Ox 93 L 08/21/17 13:28 Weight - Most Recent: 190 lb 0.016 oz I&O - Last 24 hours: Intake & Output 08/21/17 08/21/17 08/21/17 06:59 14:59 22:59 Intake Total 400 850 360 Output Total 1000 600 Balance -600 250 360 Lab Results - Last 24 hrs: Laboratory Results - last 24 hr 08/21/17 08/21/17 08/21/17 Range/Units 06:38 06:38 06:50 WBC 9.9 (4.5-11.0) K/uL RBC 4.99 (3.30-5.50) M/uL Hgb 15.0 (12.0-15.0) g/dL Hct 43.6 (36.0-48.0) % MCV 87 (80-98) fL MCH 30 (27-31) pg MCHC 34 (32-36) % Plt Count 283 (150-400) K/uL Sodium 140 (140-148) mmol/L Potassium 4.0 (3.6-5.2) mmol/L Chloride 100 (100-108) mmol/L Carbon Dioxide 30 (21-32) mmol/L Anion Gap 9.9 (5.0-14.0) mmol/L BUN 19 H D (7-18) mg/dL Creatinine 1.1 H (0.6-1.0) mg/dL Est Cr Clr Drug Dosing 41.60 mL/min Estimated GFR (MDRD) 50 L (>60) Glucose 109 H (74-106) mg/dL Calcium 8.6 (8.5-10.1) mg/dL NT-Pro-B Natriuret Pep 5251 H (5-125) pg/mL Med Orders - Current: Current Medications Acetaminophen (Tylenol) 650 mg PO Q4H PRN PRN Reason: Pain Last Admin: 08/20/17 16:25 Dose: 650 mg Albuterol (Proventil Neb Soln) 0 mg NEB Q6H ALEJANDRO Last Admin: 08/21/17 13:55 Dose: 2.5 mg Apixaban (Eliquis) 5 mg PO BID [facility] Last Admin: 08/21/17 08:31 Dose: 5 mg Aspirin (Aspirin) 81 mg PO DAILY [facility] Last Admin: 08/21/17 08:31 Dose: 81 mg Budesonide (Pulmicort) 0.5 mg NEB BIDRT [facility] Last Admin: 08/21/17 07:21 Dose: 0.5 mg Furosemide (Lasix) 40 mg PO BID [facility] Last Admin: 08/21/17 08:32 Dose: 40 mg Metoprolol Succinate (Toprol Xl) 50 mg PO DAILY [facility] Last Admin: 08/21/17 08:31 Dose: 50 mg Pravastatin Sodium (Pravachol) 40 mg PO DAILY [facility] Last Admin: 08/21/17 08:30 Dose: 40 mg Ranitidine HCl (Zantac) 150 mg PO BID [facility] Last Admin: 08/21/17 08:30 Dose: 150 mg Sumatriptan Succinate (Imitrex) 50 mg PO DAILY PRN PRN Reason: Headache Last Admin: 08/20/17 19:22 Dose: 50 mg Discontinued Medications Albuterol (Proventil Neb Soln) Confirm Administered Dose 2.5 mg .ROUTE .STK-MED ONE Stop: 08/20/17 03:11 Last Admin: 08/20/17 03:28 Dose: 2.5 mg Albuterol (Proventil Neb Soln) 2.5 mg NEB ONETIME ONE Stop: 08/20/17 03:52 Last Admin: 08/20/17 04:01 Dose: Not Given Apixaban (Eliquis) 5 mg PO ONETIME ONE Stop: 08/20/17 08:01 Budesonide (Pulmicort) 0.5 mg NEB ONETIME ONE Stop: 08/20/17 03:21 Last Admin: 08/20/17 03:28 Dose: 0.5 mg Furosemide (Lasix) 40 mg IVPUSH ONETIME ONE Stop: 08/20/17 03:59 Last Admin: 08/20/17 04:07 Dose: 40 mg Sodium Chloride (Normal Saline) 100 mls @ 3 mls/sec IV ASDIRECTED [facility] Iopamidol (Isovue-370 (76%)) 100 ml IV . DIRECTED [facility] Morphine Sulfate (Morphine) 2 mg IVPUSH ONETIME ONE Stop: 08/20/17 03:41 Last Admin: 08/20/17 03:43 Dose: 2 mg Polyethylene Glycol (Miralax) 34 gm PO ONETIME ONE Stop: 08/21/17 14:01 Last Admin: 08/21/17 15:05 Dose: Not Given *Q Meaningful Use (DIS) - VTE *Q VTE Criteria *Q: - Stroke *Q Stroke Criteria *Q: - AMI *Q AMI Criteria *Q:
== END 2017-08-21 16:10 | disposition home or self-care (01) | DRG 293 ==
LOC: JP.ED 03:03 → JP.MS 04:40
PROVIDERS: ADMIT Family Medicine; ATTEND Hospitalist
DX: I50.9 Heart failure, unspecified (principal); I50.30 Unspecified diastolic (congestive) heart failure; J44.9 Chronic obstructive pulmonary disease, unspecified; E88.01 Alpha-1-antitrypsin deficiency; I48.0 Paroxysmal atrial fibrillation; R06.02 Shortness of breath; Z79.01 Long term (current) use of anticoagulants; R09.02 Hypoxemia; Z87.891 Personal history of nicotine dependence; Z79.82 Long term (current) use of aspirin; H54.7 Unspecified visual loss; R10.13 Epigastric pain; G43.909 Migraine, unspecified, not intractable, without status migrainosus; Z88.1 Allergy status to other antibiotic agents; Z91.010 Allergy to peanuts; Z88.0 Allergy status to penicillin
CPT/HCPCS: 36415; 71045 ×2; 80048; 82803; 83880; 84484; 85027; 93005; 94640 ×3; 94660; J1940; J2270; J7626; 36600; 71046; 71046-26; 71275; 71275-26; 85379; 93010; 93970; 93970-26; 96374; 96375; 99285-25; A9270-GY

== ENCOUNTER 2017-09-11 01:27 | Emergency (ER) | payer MEDICARE, OTHER ==
--- NOTE | 2017-09-11 02:08 | EDM.PDOC ---
ED HPI GENERAL MEDICAL PROBLEM - General Chief Complaint: Cardiovascular Problem Stated Complaint: BLOOD PRESSURE HIGH Time Seen by Provider: 09/11/17 02:04 Source of Information: Reports: Patient History Limitations: Reports: No Limitations - History of Present Illness INITIAL COMMENTS - FREE TEXT/NARRATIVE: pt has felt weak and slightly sob. She checked her bp and it was quite high at home. On arrival here it was quite good. She has not noticed increased ankle swelling. She was recently decreased on her lasix from 40 to 20. She did have trial fib the beginning of August. Onset: Today Duration: Hour(s): Location: Reports: Chest, Other (pt felt weak. 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: Reports: Other (see below) - Related Data Allergies Allergy/AdvReac Type Severity Reaction Status Date / Time azithromycin [From Zithromax] Allergy Itching Verified 09/11/17 01:34 Penicillins Allergy Respiratory Verified 09/11/17 01:34 Distress Home Meds: Home Meds Benzonatate 1 tab PO TID PRN 06/26/14 [History] Pravastatin [Pravachol] 1 tab PO DAILY 06/26/14 [History] Albuterol [Ventolin HFA] 1 puff INH ASDIRECTED PRN 04/20/17 [History] Fluticasone/Salmeterol [Advair 250-50 Diskus] 1 each IH BID 04/20/17 [History] Ranitidine HCl [Ranitidine] 150 mg PO BID 04/20/17 [History] [place]ukcb-7-Hsxseueqiz Inhibitor [Glassia] 1 gm IV WEEKLY 08/20/17 [History] Apixaban [Eliquis] 5 mg PO BID 08/20/17 [History] Aspirin [Children's Aspirin] 81 mg PO DAILY 08/20/17 [History] Black Cohosh 80 mg PO DAILY 08/20/17 [History] [place]-3 Fatty Acids [Maxepa] 1,000 mg PO DAILY 08/20/17 [History] SUMAtriptan 100 mg PO ASDIRECTED 08/20/17 [History] Ubidecarenone [Coenzyme Q10] 100 mg PO DAILY 08/20/17 [History] Furosemide [Lasix] 20 mg PO DAILY 09/11/17 [History] Metoprolol Succinate [Toprol XL 50mg] 50 mg PO DAILY 09/11/17 [History] Past Medical History HEENT History: Reports: Impaired Vision Cardiovascular History: Reports: Afib Other Cardiovascular History: angioplasty cardioversion Respiratory History: Reports: Other (See Below) Other Respiratory History: alpha 1 Neurological History: Reports: Migraines - Infectious Disease History Infectious Disease History: Reports: Chicken Pox, Measles, Mumps - Past Surgical History GI Surgical History: Reports: Appendectomy Social & Family History - Tobacco Use Smoking Status *Q: Never Smoker Years of Tobacco use: 10 Used Tobacco, but Quit: Yes Month/Year Tobacco Last Used: 32 years Second Hand Smoke Exposure: No - Caffeine Use Caffeine Use: Reports: None - Alcohol Use Days Per Week of Alcohol Use: 1 Number of Drinks Per Day: 1 Total Drinks Per Week: 1 - Recreational Drug Use Recreational Drug Use: No ED ROS GENERAL - Review of Systems Review Of Systems: See Below Constitutional: Reports: No Symptoms HEENT: Reports: No Symptoms Respiratory: Reports: No Symptoms Cardiovascular: Reports: Blood Pressure Problem Endocrine: Reports: No Symptoms GI/Abdominal: Reports: No Symptoms : Reports: No Symptoms Musculoskeletal: Reports: No Symptoms Skin: Reports: No Symptoms Neurological: Reports: Other (pt is very slightly lite headed. ) Psychiatric: Reports: Anxiety Hematologic/Lymphatic: Reports: No Symptoms ED EXAM, GENERAL - Physical Exam Exam: See Below Free Text/Narrative:: pt arrived feeling slightly sob. She was more sob at home. She was feeling weak and at home her bp was elevated. On arrival here her bp was good. Exam Limited By: No Limitations General Appearance: Alert, Mild Distress Ears: Normal TMs Nose: Normal Inspection Throat/Mouth: Normal Inspection Head: Atraumatic Neck: Normal Inspection Respiratory/Chest: Rales Cardiovascular: Regular Rate, Rhythm GI/Abdominal: Soft, Non-Tender (Female) Exam: Deferred Rectal (Female) Exam: Deferred Back Exam: Normal Inspection Extremities: Other ( trace pedal edema. ) Neurological: Alert, Oriented, Normal Cognition Psychiatric: Normal Affect Course - Vital Signs Last Recorded V/S: Last Vital Signs Temp 35.6 C 09/11/17 01:31 Pulse 58 L 09/11/17 03:40 Resp 15 09/11/17 03:40 BP 133/83 09/11/17 03:40 Pulse Ox 91 L 09/11/17 03:40 - Orders/Labs/Meds Orders: Active Orders 24 hr Category Date Time Status EKG Documentation Completion [RC] ASDIRECTED Care 09/11/17 01:52 Active Chest 1V Frontal [CR] Stat Exams 09/11/17 02:02 Taken UA W/MICROSCOPIC [URIN] Urgent Lab 09/11/17 02:14 Ordered Sodium Chloride 0.9% [Saline Flush] Med 09/11/17 02:34 Active 10 ml FLUSH ASDIRECTED PRN Saline Lock Insert [OM.PC] Routine Oth 09/11/17 02:34 Ordered EKG 12 Lead [EK] Routine Ther 09/11/17 01:52 Ordered Medication Orders Sodium Chloride (Saline Flush) 10 ml FLUSH ASDIRECTED PRN PRN Reason: Keep Vein Open Last Admin: 09/11/17 02:53 Dose: 10 ml Labs: Laboratory Tests 09/11/17 09/11/17 09/11/17 Range/Units 02:02 02:02 02:14 WBC 5.4 (4.5-11.0) K/uL RBC 5.12 (3.30-5.50) M/uL Hgb 15.3 H (12.0-15.0) g/dL Hct 44.8 (36.0-48.0) % MCV 88 (80-98) fL MCH 30 (27-31) pg MCHC 34 (32-36) % Plt Count 254 (150-400) K/uL Neut % (Auto) 57 (36-66) % Lymph % (Auto) 26 (24-44) % [place] % (Auto) 12 H (2-6) % Eos % (Auto) 4 (2-4) % Baso % (Auto) 1 (0-1) % Sodium 134 L (140-148) mmol/L Potassium 4.1 (3.6-5.2) mmol/L Chloride 98 L (100-108) mmol/L Carbon Dioxide 26 (21-32) mmol/L Anion Gap 14.1 H (5.0-14.0) mmol/L BUN 14 (7-18) mg/dL Creatinine 1.0 (0.6-1.0) mg/dL Est Cr Clr Drug Dosing 43.77 mL/min Estimated GFR (MDRD) 55 L (>60) Glucose 109 H (74-106) mg/dL Calcium 9.0 (8.5-10.1) mg/dL Total Bilirubin 0.4 D (0.2-1.0) mg/dL AST 33 (15-37) U/L ALT 37 (12-78) U/L Alkaline Phosphatase 94 (46-116) U/L NT-Pro-B Natriuret Pep 1433 H (5-125) pg/mL Total Protein 6.9 (6.4-8.2) g/dL Albumin 3.7 (3.4-5.0) g/dL Globulin 3.2 (2.3-3.5) g/dL Albumin/Globulin Ratio 1.2 (1.2-2.2) Urine Color Yellow Urine Appearance Clear Urine pH 7.0 (4.5-8.0) Ur Specific [place] 1.010 (1.008-1.030) Urine Protein Negative (NEGATIVE) mg/dL Urine Glucose (UA) Normal (NEGATIVE) mg/dL Urine Ketones Negative (NEGATIVE) mg/dL Urine Occult Blood Negative (NEGATIVE) Urine Nitrite Negative (NEGATIVE) Urine Bilirubin Negative (NEGATIVE) Urine Urobilinogen Normal (NORMAL) mg/dL Ur Leukocyte Esterase Negative (NEGATIVE) Urine RBC 0-5 (0-5) Urine WBC 0-5 (0-5) Ur Epithelial Cells Few Amorphous Sediment Not seen Urine Bacteria Few Urine Mucus Not seen Meds: Medications Generic Name Dose Route Start Last Admin Trade Name Freq PRN Reason Stop Dose Admin Sodium Chloride 10 ml 09/11/17 02:34 09/11/17 02:53 Saline Flush FLUSH 10 ml ASDIRECTED PRN Administration Keep Vein Open Discontinued Medications Generic Name Dose Route Start Last Admin Trade Name Freq PRN Reason Stop Dose Admin Furosemide 60 mg 09/11/17 02:34 09/11/17 02:53 Lasix IVPUSH 09/11/17 02:35 60 mg ONETIME ONE Administration - Re-Assessments/Exams Free Text/Narrative Re-Assessment/Exam: 09/11/17 02:52 chest xray does not show drastic changes. Her bnp is greater than 1400. She was given lasix 60mg iv. 09/11/17 03:52 Pt was given lasix 60mg iv and has started to put out fluid. Departure - Departure Time of Disposition: 03:53 Disposition: Home, Self-Care 01 Condition: Fair Clinical Impression: Fluid overload Referrals: Chava Quintero MD [Primary Care Provider] - Forms: ED Department Discharge Care Plan Goals: increase lasix to 40mg alternating with 20mg cont other meds the same. follow up appt with Dr Quintero in 4-5 days - My Orders Last 24 Hours: My Active Orders 09/11/17 01:52 EKG Documentation Completion [RC] ASDIRECTED EKG 12 Lead [EK] Routine 09/11/17 02:02 Chest 1V Frontal [CR] Stat 09/11/17 02:14 UA W/MICROSCOPIC [URIN] Urgent 09/11/17 02:34 Sodium Chloride 0.9% [Saline Flush] 10 ml FLUSH ASDIRECTED PRN Saline Lock Insert [OM.PC] Routine - Assessment/Plan Last 24 Hours: My Active Orders 09/11/17 01:52 EKG Documentation Completion [RC] ASDIRECTED EKG 12 Lead [EK] Routine 09/11/17 02:02 Chest 1V Frontal [CR] Stat 09/11/17 02:14 UA W/MICROSCOPIC [URIN] Urgent 09/11/17 02:34 Sodium Chloride 0.9% [Saline Flush] 10 ml FLUSH ASDIRECTED PRN Saline Lock Insert [OM.PC] Routine
[2017-09-11] MEDS ORDERED: Sodium Chloride 0.9% 10 ML Syringe FLUSH PRN (02:34)
[2017-09-11] MEDS ORDERED: Furosemide 40 MG/4 ML VIAL IVPUSH ONE (02:34)
[2017-09-11 03:41] VITALS: BP 133/83
--- NOTE | 2017-09-11 11:05 | CR ---
Mild cardiomegaly. Pulmonary vasculature within normal limits. Emphysematous change. No focal consoli dation. Probable scarring within the lung bases as well.
== END 2017-09-11 04:29 | disposition home or self-care (01) ==
LOC: JP.ED 01:27
DX: E87.70 Fluid overload, unspecified (principal); I48.91 Unspecified atrial fibrillation; Z88.1 Allergy status to other antibiotic agents; Z88.0 Allergy status to penicillin; Z79.899 Other long term (current) drug therapy; Z90.49 Acquired absence of other specified parts of digestive tract; Z79.82 Long term (current) use of aspirin
CPT/HCPCS: 36415; 71045; 80053; 81001; 83880; 85025; 93005; 99283; J1940; J7050; 96374

== ENCOUNTER 2017-09-12 20:37 | Emergency (ER) | payer MEDICARE, OTHER ==
[2017-09-12] MEDS ORDERED: Diltiazem 25 MG/5 ML SDV ONE (20:52)
--- NOTE | 2017-09-12 21:08 | EDM.PDOC ---
ED HPI GENERAL MEDICAL PROBLEM - General Chief Complaint: Cardiovascular Problem Stated Complaint: HEART ISSUES Time Seen by Provider: 09/12/17 20:45 Source of Information: Reports: Patient, Family History Limitations: Reports: No Limitations - History of Present Illness INITIAL COMMENTS - FREE TEXT/NARRATIVE: 67-year-old female who has been having problems with recurring cardiac arrhythmias over the past month, had electrical cardioversion for atrial fibrillation in [place] several weeks ago and was hospitalized briefly here afterwards for pulmonary edema. She redeveloped palpitations and felt her blood pressure was elevating yesterday, came into the emergency room and had a thorough evaluation and everything was negative. It happened again tonight however, it tends to happen when she is active. On arrival to the emergency room she was again stable and in what appeared to be a sinus or ectopic atrial rhythm with frequent PACs and a normal blood pressure. Onset: Unknown/Unsure (Off-and-on for the past month) Severity: Moderate Worsens with: Reports: Other (Activity seems to trigger symptoms) - Related Data Allergies Allergy/AdvReac Type Severity Reaction Status Date / Time azithromycin [From Zithromax] Allergy Itching Verified 09/12/17 21:00 Penicillins Allergy Respiratory Verified 09/12/17 21:00 Distress Home Meds: Home Meds Benzonatate 1 tab PO TID PRN 06/26/14 [History] Pravastatin [Pravachol] 1 tab PO DAILY 06/26/14 [History] Albuterol [Ventolin HFA] 1 puff INH ASDIRECTED PRN 04/20/17 [History] Fluticasone/Salmeterol [Advair 250-50 Diskus] 1 each IH BID 04/20/17 [History] Ranitidine HCl [Ranitidine] 150 mg PO BID 04/20/17 [History] Xpahx-6-Sxxolyunbh Inhibitor [Glassia] 1 gm IV WEEKLY 08/20/17 [History] Apixaban [Eliquis] 5 mg PO BID 08/20/17 [History] Aspirin [Children's Aspirin] 81 mg PO DAILY 08/20/17 [History] Black Cohosh 80 mg PO DAILY 08/20/17 [History] [place]-3 Fatty Acids [Maxepa] 1,000 mg PO DAILY 08/20/17 [History] SUMAtriptan 100 mg PO ASDIRECTED 08/20/17 [History] Ubidecarenone [Coenzyme Q10] 100 mg PO DAILY 08/20/17 [History] Furosemide [Lasix] 20 mg PO DAILY 09/11/17 [History] Metoprolol Succinate [Toprol XL 50mg] 50 mg PO DAILY 09/11/17 [History] Past Medical History HEENT History: Reports: Impaired Vision Cardiovascular History: Reports: Afib Other Cardiovascular History: angioplasty cardioversion Respiratory History: Reports: Other (See Below) Other Respiratory History: alpha 1 Neurological History: Reports: Migraines - Infectious Disease History Infectious Disease History: Reports: Chicken Pox, Measles, Mumps - Past Surgical History GI Surgical History: Reports: Appendectomy Social & Family History - Tobacco Use Smoking Status *Q: Never Smoker Years of Tobacco use: 10 Used Tobacco, but Quit: Yes Month/Year Tobacco Last Used: 32 years Second Hand Smoke Exposure: No - Caffeine Use Caffeine Use: Reports: None - Alcohol Use Days Per Week of Alcohol Use: 1 Number of Drinks Per Day: 1 Total Drinks Per Week: 1 - Recreational Drug Use Recreational Drug Use: No ED ROS GENERAL - Review of Systems Review Of Systems: See Below Constitutional: Denies: Fever, Chills Respiratory: Reports: Shortness of Breath. Denies: Cough Cardiovascular: Reports: Chest Pain, Dyspnea on Exertion (Pressure sensation), Palpitations GI/Abdominal: Reports: Nausea. Denies: Abdominal Pain, Vomiting Skin: Reports: No Symptoms Neurological: Reports: No Symptoms Psychiatric: Reports: No Symptoms ED EXAM, GENERAL - Physical Exam Exam: See Below Exam Limited By: No Limitations General Appearance: Alert, No Apparent Distress Eye Exam: Bilateral Eye: Normal Inspection Respiratory/Chest: No Respiratory Distress, Lungs Clear Cardiovascular: Regular Rate, Rhythm, Extra Beats (Frequent ectopic beats were present) GI/Abdominal: Soft, Non-Tender Neurological: Alert, Oriented, No Motor/Sensory Deficits Psychiatric: Normal Affect, Normal Mood Skin Exam: Warm, Dry EKG INTERPRETATION EKG Date: 09/12/17 Rhythm: Other (Patient appeared to have an ectopic atrial rhythm with frequent PACs, very similar to her EKG from yesterday.) Course - Vital Signs Last Recorded V/S: Last Vital Signs Temp 97.7 F 09/12/17 20:37 Pulse 112 H 09/12/17 21:24 Resp 12 09/12/17 21:24 BP 123/84 09/12/17 21:24 Pulse Ox 96 09/12/17 21:24 - Orders/Labs/Meds Meds: Medications Discontinued Medications Generic Name Dose Route Start Last Admin Trade Name Vee PRN Reason Stop Dose Admin Diltiazem HCl Confirm 09/12/17 20:52 Diltiazem Administered 09/13/17 00:03 Dose 25 mg .ROUTE .STK-MED ONE - Re-Assessments/Exams Free Text/Narrative Re-Assessment/Exam: 09/12/17 21:06 The patient had to go to the bathroom so she was stood up to use a bedside commode and developed heaviness in her legs, and shortness of breath. The cardiac rn showed a markedly different rhythm which appeared to be a mixture of atrial fibrillation and flutter, mostly flutter with a 2-1 capture at a rate of 180. A second EKG was done which confirmed the rhythm. Cardizem IV was being prepared when the patient converted again spontaneously after resting into a more normal rhythm. 09/13/17 00:01 Due to this patient's persistent recurring arrhythmia despite being on metoprolol, I asked the hospitalist service at [facility] in [place] to accept the patient for monitoring and cardiac evaluation. She was kindly accepted, and transferred by EMS. All labs done yesterday were copied and sent with the patient. She left stable Departure - Departure Time of Disposition: 21:57 Disposition: DC/Tfer to Acute Hospital 02 Reason for Transfer *Q: Other Condition: Fair Clinical Impression: Atrial fibrillation and flutter Referrals: Chava Quintero MD [Primary Care Provider] - Forms: ED Department Discharge Care Plan Goals: Patient was transferred to [place] by EMS for admission for cardiac evaluation and treatment.
[2017-09-12 21:25] VITALS: BP 123/84
== END 2017-09-12 21:58 ==
LOC: JP.ED 20:37
DX: I48.91 Unspecified atrial fibrillation (principal); I48.92 Unspecified atrial flutter; G43.909 Migraine, unspecified, not intractable, without status migrainosus; Z87.891 Personal history of nicotine dependence; Z79.82 Long term (current) use of aspirin; Z79.899 Other long term (current) drug therapy; Z88.1 Allergy status to other antibiotic agents; Z88.0 Allergy status to penicillin
CPT/HCPCS: 93005; 99285-25

== ENCOUNTER 2017-09-23 11:37 | Emergency (ER) | payer MEDICARE, OTHER ==
[2017-09-23 12:07] VITALS: BP 159/105
--- NOTE | 2017-09-23 12:26 | EDM.PDOC ---
ED HPI GENERAL MEDICAL PROBLEM - General Chief Complaint: General Stated Complaint: LIGHTHEADED Time Seen by Provider: 09/23/17 12:00 Source of Information: Reports: Patient History Limitations: Reports: No Limitations - History of Present Illness INITIAL COMMENTS - FREE TEXT/NARRATIVE: 67-year-old female who just recently had a dual-chamber pacemaker placed along with some medication changes, got home yesterday and this morning was feeling lightheaded. She took her blood pressure and was mildly elevated so she called the ground mixer at [facility] and he advised her to come in to get checked. She has no shortness of breath or pain. Just feels anxious. Over the past 2-1/2 weeks she was switched from metoprolol to sotalol, and now from sotalol to atenolol. She was also started on Eloquis. Onset: Unknown/Unsure (Just felt a little lightheaded this morning when she woke up) Severity: Mild Worsens with: Reports: Other (Activity seems to worsen the lightheadedness) - Related Data Allergies Allergy/AdvReac Type Severity Reaction Status Date / Time azithromycin [From Zithromax] Allergy Itching Verified 09/12/17 21:00 Penicillins Allergy Respiratory Verified 09/12/17 21:00 Distress Home Meds: Home Meds Benzonatate 1 tab PO TID PRN 06/26/14 [History] Albuterol [Ventolin HFA] 1 puff INH ASDIRECTED PRN 04/20/17 [History] Fluticasone/Salmeterol [Advair 250-50 Diskus] 1 each IH BID 04/20/17 [History] Ranitidine HCl [Ranitidine] 150 mg PO BID 04/20/17 [History] Btqkk-3-Ykzevexrxi Inhibitor [Glassia] 1 gm IV WEEKLY 08/20/17 [History] Apixaban [Eliquis] 5 mg PO BID 08/20/17 [History] [place]-3 Fatty Acids [Maxepa] 1,000 mg PO DAILY 08/20/17 [History] SUMAtriptan 100 mg PO ASDIRECTED PRN 08/20/17 [History] Ubidecarenone [Coenzyme Q10] 100 mg PO DAILY 08/20/17 [History] Furosemide [Lasix] 20 mg PO DAILY 09/11/17 [History] Atenolol 25 mg PO DAILY 09/23/17 [History] Calcium Carb/Magnesium Cmb #10 [Yovanny-Mag] 2 tab PO DAILY 09/23/17 [History] Fluticasone/Salmeterol [Advair 100-50] 1 inh PO BID 09/23/17 [History] Past Medical History HEENT History: Reports: Impaired Vision Cardiovascular History: Reports: Afib, Pacemaker Other Cardiovascular History: angioplasty cardioversion Respiratory History: Reports: Other (See Below) Other Respiratory History: alpha 1 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 History: Reports: GERD 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: Neurological History: Reports: Migraines Hematologic History: Reports: Anticoagulation Therapy - Infectious Disease History Infectious Disease History: Reports: Chicken Pox, Measles, Mumps - Past Surgical History Cardiovascular Surgical History: Reports: Pacer Other Cardiovascular Surgeries/Procedures: pacemaker placed on 09/22/17 GI Surgical History: Reports: Appendectomy Female Surgical History: Reports: Oophorectomy Social & Family History - Family History Family Medical History: Noncontributory - Tobacco Use Smoking Status *Q: Never Smoker Years of Tobacco use: 10 Used Tobacco, but Quit: Yes Month/Year Tobacco Last Used: 32 years Second Hand Smoke Exposure: No - Caffeine Use Caffeine Use: Reports: None - Alcohol Use Days Per Week of Alcohol Use: 1 Number of Drinks Per Day: 1 Total Drinks Per Week: 1 - Recreational Drug Use Recreational Drug Use: No ED ROS GENERAL - Review of Systems Review Of Systems: See Below Constitutional: Denies: Chills, Malaise Respiratory: Denies: Shortness of Breath Cardiovascular: Denies: Palpitations GI/Abdominal: Denies: Abdominal Pain, Nausea, Vomiting Skin: Reports: No Symptoms Neurological: Denies: Headache ED EXAM, GENERAL - Physical Exam Exam: See Below Exam Limited By: No Limitations General Appearance: Alert, No Apparent Distress Respiratory/Chest: No Respiratory Distress, Lungs Clear Cardiovascular: Regular Rate, Rhythm GI/Abdominal: Non-Tender Neurological: Alert, Oriented Psychiatric: Normal Affect, Anxious Skin Exam: Warm, Dry Course - Vital Signs Last Recorded V/S: Last Vital Signs Temp 97.2 F 09/23/17 12:11 Pulse 60 09/23/17 12:06 Resp 16 09/23/17 12:06 BP 159/105 H 09/23/17 12:07 Pulse Ox 95 09/23/17 12:06 - Orders/Labs/Meds Labs: Laboratory Tests 09/23/17 Range/Units 12:23 WBC 7.0 (4.5-11.0) K/uL RBC 5.00 (3.30-5.50) M/uL Hgb 15.3 H (12.0-15.0) g/dL Hct 43.2 (36.0-48.0) % MCV 86 (80-98) fL MCH 31 (27-31) pg MCHC 35 (32-36) % Plt Count 272 (150-400) K/uL Neut % (Auto) 65 (36-66) % Lymph % (Auto) 17 L (24-44) % [place] % (Auto) 15 H (2-6) % Eos % (Auto) 2 (2-4) % Baso % (Auto) 1 (0-1) % - Re-Assessments/Exams Free Text/Narrative Re-Assessment/Exam: 09/23/17 12:26 Patient was placed on cardiac monitoring which showed a normal sinus rhythm without pacemaker activity. Orthostatic blood pressures were obtained which were very stable, in fact her blood pressure slightly elevated when standing. Rate remained in the 60s. A CBC was drawn for reassurance. 09/23/17 12:48 Patient was kept on cardiac monitoring while awaiting for CBC. Her hemoglobin is 15.3, exactly what it was 2 weeks ago when she was transferred. She developed no symptoms while in the emergency room and was reassured. Departure - Departure Time of Disposition: 13:05 Disposition: Home, Self-Care 01 Condition: Good Clinical Impression: Light-headed feeling Hypertension Qualifiers: Hypertension type: unspecified secondary hypertension Qualified Code(s): I15.9 - Secondary hypertension, unspecified - Discharge Information Instructions: Dizziness, [id number] Referrals: Chava Quintero MD [Primary Care Provider] - Forms: ED Department Discharge Care Plan Goals: Continue your current medications and activity as tolerated. Recheck at any time if you develop other concerns or feel you're worsening.
== END 2017-09-23 13:10 | disposition home or self-care (01) ==
LOC: JP.ED 11:37
DX: I15.9 Secondary hypertension, unspecified (principal); Z88.1 Allergy status to other antibiotic agents; Z88.0 Allergy status to penicillin; Z79.899 Other long term (current) drug therapy; Z87.891 Personal history of nicotine dependence
CPT/HCPCS: 36415; 85025; 99284

== ENCOUNTER 2018-11-17 23:25 | Emergency (ER) | payer MEDICARE, OTHER ==
[2018-11-18] MEDS ORDERED: Propofol 200 MG/20 ML SDV IVPUSH ONE (00:12)
--- NOTE | 2018-11-18 00:29 | EDM.PDOC ---
ED HPI GENERAL MEDICAL PROBLEM - General Chief Complaint: Cardiovascular Problem Stated Complaint: A-FIB? Time Seen by Provider: 11/18/18 00:00 Source of Information: Reports: Patient, Family History Limitations: Reports: No Limitations - History of Present Illness INITIAL COMMENTS - FREE TEXT/NARRATIVE: 68-year-old female with a history of intermittent atrial fibrillation or atrial flutter presents with 1-1/2 hours of palpitations and mild shortness of breath. It was very sudden onset, and her symptoms very typical of her atrial fibrillation in the past. She tried Valsalva maneuver without success. She has no significant chest pain, fever, abdominal pain or nausea or vomiting. Duration: Hour(s): (1 hour) - Related Data Allergies Allergy/AdvReac Type Severity Reaction Status Date / Time azithromycin [From Zithromax] Allergy Itching Verified 11/17/18 23:35 Penicillins Allergy Respiratory Verified 11/17/18 23:35 Distress Home Meds: Home Meds Benzonatate 1 tab PO TID PRN 06/26/14 [History] Albuterol [Ventolin HFA] 1 puff INH ASDIRECTED PRN 04/20/17 [History] Ranitidine HCl [Ranitidine] 150 mg PO BID 04/20/17 [History] [place]-4-Fucxfstmth Inhibitor [Glassia] 1 gm IV WEEKLY 08/20/17 [History] [place]-3 Fatty Acids [Maxepa] 1,000 mg PO DAILY 08/20/17 [History] SUMAtriptan 100 mg PO ASDIRECTED PRN 08/20/17 [History] Ubidecarenone [Coenzyme Q10] 100 mg PO DAILY 08/20/17 [History] Furosemide [Lasix] 40 mg PO DAILY 09/11/17 [History] Atenolol 25 mg PO DAILY 09/23/17 [History] Calcium Carb/Magnesium Cmb #10 [Yovanny-Mag] 2 tab PO DAILY 09/23/17 [History] Fluticasone/Salmeterol [Advair 100-50] 1 inh PO BID 09/23/17 [History] Rivaroxaban [Xarelto] 20 mg PO BEDTIME 05/29/18 [History] Pravastatin Sodium 1 tab PO DAILY 11/17/18 [History] Past Medical History HEENT History: Reports: Impaired Vision Cardiovascular History: Reports: Afib, High Cholesterol, Hypertension, Pacemaker Other Cardiovascular History: angioplasty cardioversion Respiratory History: Reports: Other (See Below) Other Respiratory History: alpha 1 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 History: Reports: 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: Neurological History: Reports: Migraines Hematologic History: Reports: Anticoagulation Therapy - Infectious Disease History Infectious Disease History: Reports: Chicken Pox, Measles, Mumps - Past Surgical History Cardiovascular Surgical History: Reports: Pacer Other Cardiovascular Surgeries/Procedures: pacemaker placed on 09/22/17 GI Surgical History: Reports: Appendectomy Female Surgical History: Reports: Oophorectomy Social & Family History - Family History Family Medical History: Noncontributory - Tobacco Use Smoking Status *Q: Former Smoker Used Tobacco, but Quit: Yes Month/Year Tobacco Last Used: 1984 - Caffeine Use Caffeine Use: Reports: Coffee - Alcohol Use Days Per Week of Alcohol Use: 1 Number of Drinks Per Day: 1 Total Drinks Per Week: 1 - Recreational Drug Use Recreational Drug Use: No ED ROS GENERAL - Review of Systems Review Of Systems: See Below Constitutional: Denies: Fever Respiratory: Reports: Shortness of Breath Cardiovascular: Reports: Palpitations, Other (Chronic lower extremity edema). Denies: Chest Pain GI/Abdominal: Denies: Nausea, Vomiting Skin: Reports: No Symptoms Neurological: Denies: Dizziness, Headache ED EXAM, GENERAL - Physical Exam Exam: See Below Exam Limited By: No Limitations General Appearance: Alert, No Apparent Distress Head: Atraumatic Respiratory/Chest: No Respiratory Distress, Lungs Clear Cardiovascular: Regular Rate, Rhythm, Tachycardia GI/Abdominal: Soft, Non-Tender Extremities: Other (1+ symmetric lower extremity edema) Neurological: Alert, Oriented EKG INTERPRETATION Rhythm: A-Flutter (Initial EKG revealed atrial flutter with a rate of 157) Course - Vital Signs Last Recorded V/S: Last Vital Signs Temp 96.7 F 11/18/18 01:01 Pulse 64 11/18/18 01:01 Resp 12 11/18/18 01:01 BP 103/67 11/18/18 01:01 Pulse Ox 91 L 11/18/18 01:01 - Orders/Labs/Meds Orders: Active Orders 24 hr Category Date Time Status EKG Documentation Completion [RC] ASDIRECTED Care 11/18/18 00:22 Active EKG Documentation Completion [RC] ASDIRECTED Care 11/18/18 00:23 Active EKG 12 Lead [EK] Routine Ther 11/18/18 00:22 Ordered EKG 12 Lead [EK] Routine Ther 11/18/18 00:23 Ordered Meds: Medications Discontinued Medications Generic Name Dose Route Start Last Admin Trade Name Vee PRN Reason Stop Dose Admin Propofol 100 mg 11/18/18 00:12 11/18/18 00:18 Diprivan 20 Ml IVPUSH 11/18/18 00:13 80 mg ONETIME ONE Administration - Re-Assessments/Exams Free Text/Narrative Re-Assessment/Exam: 11/18/18 01:07 After the initial EKG showed atrial flutter, carotid body massage and Valsalva maneuvers were attempted without success. The patient had nothing oral for the last 4 hours, so she was given 80 mg of propofol IV after consent, and cardioverted with 200 J of synchronized cardioversion. She converted with only 1 attempt, and was observed for another 20-30 minutes in the emergency room and all her symptoms were gone. No medication changes, follow-up as needed or if symptoms recur. Departure - Departure Time of Disposition: :31 Disposition: Home, Self-Care 01 Condition: Good Clinical Impression: Atrial flutter with rapid ventricular response Instructions: Atrial Flutter, Moderate Conscious Sedation, Adult, Care After Referrals: Chava Quintero MD [Primary Care Provider] - Forms: ED Department Discharge Care Plan Goals: Continue your current medications and activity as tolerated. Return anytime if symptoms recur or you develop other concerns. - My Orders Last 24 Hours: My Active Orders 11/18/18 00:22 EKG Documentation Completion [RC] ASDIRECTED EKG 12 Lead [EK] Routine 11/18/18 00:23 EKG Documentation Completion [RC] ASDIRECTED EKG 12 Lead [EK] Routine - Assessment/Plan Last 24 Hours: My Active Orders 11/18/18 00:22 EKG Documentation Completion [RC] ASDIRECTED EKG 12 Lead [EK] Routine 11/18/18 00:23 EKG Documentation Completion [RC] ASDIRECTED EKG 12 Lead [EK] Routine
[2018-11-18 01:29] VITALS: BP 103/67
== END 2018-11-18 01:31 | disposition home or self-care (01) ==
LOC: JP.ED 23:25
DX: I48.92 Unspecified atrial flutter (principal); I48.91 Unspecified atrial fibrillation; I10 Essential (primary) hypertension; E78.00 Pure hypercholesterolemia, unspecified; K21.9 Gastro-esophageal reflux disease without esophagitis; Z79.899 Other long term (current) drug therapy; Z87.891 Personal history of nicotine dependence; Z88.1 Allergy status to other antibiotic agents; Z88.0 Allergy status to penicillin
CPT/HCPCS: 92960; 93005; 99284; J2704

== ENCOUNTER 2019-01-08 18:01 | Emergency (ER) | payer MEDICARE, OTHER ==
[2019-01-08] MEDS ORDERED: Sodium Chloride 0.9% 10 ML Syringe FLUSH PRN (18:29)
[2019-01-08 18:30] VITALS: BP 105/79; PULSE 148
[2019-01-08] MEDS ORDERED: Midazolam 1 MG/ML 2 ML SDV IVPUSH ONE (18:36)
--- NOTE | 2019-01-08 18:37 | EDM.PDOC ---
ED HPI GENERAL MEDICAL PROBLEM - General Chief Complaint: Cardiovascular Problem Stated Complaint: HEART TROUBLE Time Seen by Provider: 01/08/19 18:20 Source of Information: Reports: Patient, Old Records History Limitations: Reports: No Limitations - History of Present Illness INITIAL COMMENTS - FREE TEXT/NARRATIVE: 68 yo female presents in afib with RVR for a few minutes duration. Has a pHx of paroxysmal afib and was here about 5 weeks ago for the same. Is having a heart cath and later an ablation to try to intervene in her recurrent afib spells. Has mild SOB and had some very transient chest pain today at the onset of sx's. Is feeling fine now lying in the ER. Is already anticoagulated and is on low dose Atenolol. 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: Other (see below) (none) - Related Data Allergies Allergy/AdvReac Type Severity Reaction Status Date / Time azithromycin [From Zithromax] Allergy Itching Verified 01/08/19 18:33 Penicillins Allergy Respiratory Verified 01/08/19 18:33 Distress Home Meds: Home Meds Benzonatate 1 tab PO TID PRN 06/26/14 [History] Albuterol [Ventolin HFA] 1 puff INH ASDIRECTED PRN 04/20/17 [History] Ranitidine HCl [Ranitidine] 150 mg PO BID 04/20/17 [History] Xvjgy-8-Ejsngoycrs Inhibitor [Glassia] 1 gm IV WEEKLY 08/20/17 [History] [place]-3 Fatty Acids [Maxepa] 1,000 mg PO DAILY 08/20/17 [History] SUMAtriptan 100 mg PO ASDIRECTED PRN 08/20/17 [History] Ubidecarenone [Coenzyme Q10] 100 mg PO DAILY 08/20/17 [History] Furosemide [Lasix] 40 mg PO DAILY 09/11/17 [History] Atenolol 25 mg PO DAILY 09/23/17 [History] Calcium Carb/Magnesium Cmb #10 [Yovanny-Mag] 2 tab PO DAILY 09/23/17 [History] Fluticasone/Salmeterol [Advair 100-50] 1 inh PO BID 09/23/17 [History] Rivaroxaban [Xarelto] 20 mg PO BEDTIME 05/29/18 [History] Pravastatin Sodium 1 tab PO DAILY 11/17/18 [History] Past Medical History HEENT History: Reports: Impaired Vision Cardiovascular History: Reports: Afib, High Cholesterol, Hypertension, Pacemaker Other Cardiovascular History: angioplasty cardioversion Respiratory History: Reports: Other (See Below) Other Respiratory History: alpha 1 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 History: Reports: GERD 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: Neurological History: Reports: Migraines Hematologic History: Reports: Anticoagulation Therapy - Infectious Disease History Infectious Disease History: Reports: Chicken Pox, Measles, Mumps - Past Surgical History Cardiovascular Surgical History: Reports: Pacer Other Cardiovascular Surgeries/Procedures: pacemaker placed on 09/22/17 GI Surgical History: Reports: Appendectomy Female Surgical History: Reports: Oophorectomy Social & Family History - Family History Family Medical History: Noncontributory - Caffeine Use Caffeine Use: Reports: Coffee ED ROS GENERAL - Review of Systems Review Of Systems: See Below Constitutional: Reports: No Symptoms HEENT: Reports: No Symptoms Respiratory: Reports: Shortness of Breath (with exertion only) Cardiovascular: Reports: Palpitations GI/Abdominal: Reports: No Symptoms : Reports: No Symptoms Musculoskeletal: Reports: No Symptoms Skin: Reports: No Symptoms Neurological: Reports: No Symptoms ED EXAM, GENERAL - Physical Exam Exam: See Below Exam Limited By: No Limitations General Appearance: Alert, WD/WN, No Apparent Distress Eye Exam: Bilateral Eye: Normal Inspection Ears: Normal External Exam, Normal Canal, Hearing Grossly Normal Ear Exam: Bilateral Ear: Auricle Normal, Canal Normal Nose: Normal Inspection, Normal Mucosa, No Blood Throat/Mouth: Normal Inspection, Normal Lips, Normal Oropharynx, Normal Voice, No Airway Compromise Head: Atraumatic, Normocephalic Neck: Normal Inspection Respiratory/Chest: No Respiratory Distress, Lungs Clear, Normal Breath Sounds, No Accessory Muscle Use Cardiovascular: No Edema, Tachycardia GI/Abdominal: Normal Bowel Sounds, Soft, Non-Tender, No Distention Extremities: Normal Inspection, Normal Range of Motion, Non-Tender, No Pedal Edema Neurological: Alert, Oriented, CN II-XII Intact, Normal Cognition, No Motor/ Sensory Deficits Psychiatric: Normal Affect, Normal Mood Skin Exam: Warm, Dry, Intact, Normal Color, No Rash ED CARDIOLOGY PROCEDURES - Cardioversion Indication: Atrial Fibrillation with RVR Patient Counseled: Yes Informed Consent Obtained: Yes Preparation: IV Access, Supplemental Oxygen, Monitor, Reversal Agents Available Pre-Procedure Sedation: Midazolam Cardioversion Energy: 200J Sync Mode: Monophasic Successful: Yes Number of Attempts: 1 Patient Condition Post Cardioversion: Improved Post Cardioversion EKG Reviewed: No (heart monitor shows NSR @ 70/min) Course - Vital Signs Text/Narrative:: Patient was observed on a monitor while she woke up fully from her Versed 4 mg IV. Last Recorded V/S: Last Vital Signs Temp 35.8 C 01/08/19 18:29 Pulse 148 H 01/08/19 18:29 Resp 15 01/08/19 18:29 BP 105/79 01/08/19 18:29 Pulse Ox 95 01/08/19 18:29 - Orders/Labs/Meds Orders: Active Orders 24 hr Category Date Time Status Cardiac Monitoring [RC] .As Directed Care 01/08/19 18:27 Active Flumazenil [Romazicon] Med 01/08/19 18:56 Active 0.2 mg IVPUSH ONETIME PRN Sodium Chloride 0.9% [Saline Flush] Med 01/08/19 18:29 Active 10 ml FLUSH ASDIRECTED PRN Saline Lock Insert [OM.PC] Routine Oth 01/08/19 18:29 Ordered Medication Orders Flumazenil (Romazicon) 0.2 mg IVPUSH ONETIME PRN PRN Reason: Sedation Sodium Chloride (Saline Flush) 10 ml FLUSH ASDIRECTED PRN PRN Reason: Keep Vein Open Last Admin: 01/08/19 19:04 Dose: 10 ml Meds: Medications Generic Name Dose Route Start Last Admin Trade Name Freq PRN Reason Stop Dose Admin Flumazenil 0.2 mg 01/08/19 18:56 Romazicon IVPUSH ONETIME PRN Sedation Sodium Chloride 10 ml 01/08/19 18:29 01/08/19 19:04 Saline Flush FLUSH 10 ml ASDIRECTED PRN Administration Keep Vein Open Discontinued Medications Generic Name Dose Route Start Last Admin Trade Name Freq PRN Reason Stop Dose Admin Midazolam HCl 4 mg 01/08/19 18:36 01/08/19 19:04 Versed 1 Mg/Ml IVPUSH 01/08/19 18:37 4 mg ONETIME ONE Administration Departure - Departure Time of Disposition: 19:30 Disposition: Home, Self-Care 01 Condition: Good Clinical Impression: Atrial fibrillation with RVR, Encounter for cardioversion procedure Referrals: Chava Quintero MD [Primary Care Provider] - Forms: ED Department Discharge Additional Instructions: Continue your current medications. Recheck as needed. F/U with cardiology as scheduled. No driving tonight. - My Orders Last 24 Hours: My Active Orders 01/08/19 18:27 Cardiac Monitoring [RC] .As Directed 01/08/19 18:29 Sodium Chloride 0.9% [Saline Flush] 10 ml FLUSH ASDIRECTED PRN Saline Lock Insert [OM.PC] Routine 01/08/19 18:56 Flumazenil [Romazicon] 0.2 mg IVPUSH ONETIME PRN - Assessment/Plan Last 24 Hours: My Active Orders 01/08/19 18:27 Cardiac Monitoring [RC] .As Directed 01/08/19 18:29 Sodium Chloride 0.9% [Saline Flush] 10 ml FLUSH ASDIRECTED PRN Saline Lock Insert [OM.PC] Routine 01/08/19 18:56 Flumazenil [Romazicon] 0.2 mg IVPUSH ONETIME PRN
[2019-01-08] MEDS ORDERED: Flumazenil 0.1 MG/ML 5 ML MDV IVPUSH PRN (18:56)
== END 2019-01-08 19:35 | disposition home or self-care (01) ==
LOC: JP.ED 18:01
DX: I48.91 Unspecified atrial fibrillation (principal); I10 Essential (primary) hypertension; Z88.0 Allergy status to penicillin; Z90.49 Acquired absence of other specified parts of digestive tract; Z88.1 Allergy status to other antibiotic agents; Z79.899 Other long term (current) drug therapy
CPT/HCPCS: 92960; 99283; J2250; 92950

== ENCOUNTER 2019-07-30 15:44 | Emergency (ER) | payer MEDICARE, OTHER ==
--- NOTE | 2019-07-30 16:25 | EDM.PDOC ---
ED HPI GENERAL MEDICAL PROBLEM - General Chief Complaint: Cardiovascular Problem Stated Complaint: VERY FAST HEART RATE/SOB Time Seen by Provider: 07/30/19 16:00 Source of Information: Reports: Patient, Old Records History Limitations: Reports: No Limitations - History of Present Illness INITIAL COMMENTS - FREE TEXT/NARRATIVE: 69 yo female had rapid HR much of the day today associated with some mild SOB. No chest pains. Has a pHx of paroxysmal afib with RVR. About the time she left her home destined for the hospital things seemed to revert back to normal. Has a pacemaker. Onset: Today, Sudden Onset Date: 07/30/19 Onset Time: 08:40 Duration: Hour(s):, Resolved Prior to Arrival Location: Reports: Chest Quality: Reports: Other (no pain) Severity: Moderate Improves with: Reports: Other (unknown) Worsens with: Reports: Other (unknown) Context: Reports: Other (See HPI) Associated Symptoms: Reports: Shortness of Breath (mild). 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) (none) - Related Data Allergies Allergy/AdvReac Type Severity Reaction Status Date / Time azithromycin [From Zithromax] Allergy Itching Verified 01/08/19 18:33 Penicillins Allergy Respiratory Verified 01/08/19 18:33 Distress Home Meds: Home Meds Benzonatate 1 tab PO TID PRN 06/26/14 [History] Albuterol [Ventolin HFA] 1 puff INH ASDIRECTED PRN 04/20/17 [History] Ranitidine HCl [Ranitidine] 150 mg PO BID 04/20/17 [History] Mvadf-8-Gvfmlxyeze Inhibitor [Glassia] 1 gm IV WEEKLY 08/20/17 [History] [place]-3 Fatty Acids [Maxepa] 1,000 mg PO DAILY 08/20/17 [History] SUMAtriptan 50 mg PO ASDIRECTED PRN 08/20/17 [History] Ubidecarenone [Coenzyme Q10] 100 mg PO DAILY 08/20/17 [History] Furosemide [Lasix] 20 mg PO DAILY 09/11/17 [History] Calcium Carb/Magnesium Cmb #10 [Yovanny-Mag] 2 tab PO DAILY 09/23/17 [History] Fluticasone/Salmeterol [Advair 100-50] 1 inh PO BID 09/23/17 [History] Rivaroxaban [Xarelto] 20 mg PO BEDTIME 05/29/18 [History] Pravastatin Sodium 0.5 tab PO DAILY 11/17/18 [History] Sotalol [Betapace] 120 mg PO DAILY 07/30/19 [History] Past Medical History HEENT History: Reports: Impaired Vision Cardiovascular History: Reports: Afib, High Cholesterol, Hypertension, Pacemaker Other Cardiovascular History: angioplasty cardioversion Respiratory History: Reports: Other (See Below) Other Respiratory History: alpha 1 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 History: Reports: 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: Neurological History: Reports: Migraines Hematologic History: Reports: Anticoagulation Therapy - Infectious Disease History Infectious Disease History: Reports: Chicken Pox, Measles, Mumps - Past Surgical History Cardiovascular Surgical History: Reports: Pacer Other Cardiovascular Surgeries/Procedures: pacemaker placed on 09/22/17 GI Surgical History: Reports: Appendectomy Female Surgical History: Reports: Oophorectomy Social & Family History - Family History Family Medical History: Noncontributory - Tobacco Use Smoking Status *Q: Never Smoker - Caffeine Use Caffeine Use: Reports: None - Recreational Drug Use Recreational Drug Use: No ED ROS GENERAL - Review of Systems Review Of Systems: See Below Constitutional: Reports: No Symptoms HEENT: Reports: No Symptoms Respiratory: Reports: Shortness of Breath (mild) Cardiovascular: Reports: Other (tachycardia) Endocrine: Reports: No Symptoms GI/Abdominal: Reports: No Symptoms : Reports: No Symptoms Musculoskeletal: Reports: No Symptoms Skin: Reports: No Symptoms Neurological: Reports: No Symptoms ED EXAM, GENERAL - Physical Exam Exam: See Below Exam Limited By: No Limitations General Appearance: Alert, WD/WN, No Apparent Distress Eye Exam: Bilateral Eye: Normal Inspection Ears: Normal External Exam, Normal Canal, Hearing Grossly Normal, Normal TMs Ear Exam: Bilateral Ear: Auricle Normal, Canal Normal, TM normal Nose: Normal Inspection, No Blood Throat/Mouth: Normal Inspection, Normal Lips, Normal Oropharynx, Normal Voice, No Airway Compromise Head: Atraumatic, Normocephalic Neck: Normal Inspection Respiratory/Chest: No Respiratory Distress, Lungs Clear, Normal Breath Sounds, No Accessory Muscle Use Cardiovascular: Regular Rate, Rhythm, No Edema GI/Abdominal: Normal Bowel Sounds, Soft, Non-Tender, No Distention Back Exam: Normal Inspection. No: CVA Tenderness (R), CVA Tenderness (L) Extremities: Normal Inspection, Normal Range of Motion, Non-Tender, No Pedal Edema Neurological: Alert, Oriented, CN II-XII Intact, Normal Cognition, No Motor/ Sensory Deficits Psychiatric: Normal Affect, Normal Mood Skin Exam: Warm, Dry, Intact, Normal Color, No Rash EKG INTERPRETATION EKG Date: 07/30/19 Time: 15:50 Rhythm: Other (paced rhythm) Rate (Beats/Min): 67 [place]: Normal P-Wave: Absent QRS: Wide ST-T: Depressed QT: Normal Comparison: Change From Previous EKG EKG Interpretation Comments: Interval pacemaker placement. Course - Vital Signs Text/Narrative:: I called down to [facility] and talked with the folks that monitor her pacemaker. They state she was in an atrial tachycardia @ 140/min before arrival here. Last Recorded V/S: Last Vital Signs Temp 35.8 C L 07/30/19 16:01 Pulse 66 07/30/19 16:01 Resp 15 07/30/19 16:01 BP 109/73 07/30/19 16:01 Pulse Ox 95 07/30/19 16:01 - Orders/Labs/Meds Orders: Active Orders 24 hr Category Date Time Status Cardiac Monitoring [RC] .As Directed Care 07/30/19 15:49 Active EKG Documentation Completion [RC] ASDIRECTED Care 07/30/19 16:39 Active EKG 12 Lead [EK] Routine Ther 07/30/19 16:39 Ordered Departure - Departure Time of Disposition: 16:50 Disposition: Home, Self-Care 01 Condition: Good Clinical Impression: Atrial tachycardia Instructions: Supraventricular Tachycardia, Adult, [id number] Referrals: Chava Quintero MD [Primary Care Provider] - Forms: ED Department Discharge Additional Instructions: Continue your usual medications. Return as needed. Sepsis Event Note - Focused Exam Vital Signs: Vital Signs Temp Pulse Resp BP Pulse Ox 07/30/19 16:01 35.8 C L 66 15 109/73 95 Date Exam was Performed: 07/30/19 Time Exam was Performed: 16:40 - My Orders Last 24 Hours: My Active Orders 07/30/19 15:49 Cardiac Monitoring [RC] .As Directed 07/30/19 16:39 EKG Documentation Completion [RC] ASDIRECTED EKG 12 Lead [EK] Routine - Assessment/Plan Last 24 Hours: My Active Orders 07/30/19 15:49 Cardiac Monitoring [RC] .As Directed 07/30/19 16:39 EKG Documentation Completion [RC] ASDIRECTED EKG 12 Lead [EK] Routine
[2019-07-30 16:58] VITALS: BP 102/66; PULSE 61
== END 2019-07-30 17:08 | disposition home or self-care (01) ==
LOC: JP.ED 15:44
DX: I47.1 Supraventricular tachycardia (principal); E78.00 Pure hypercholesterolemia, unspecified; I10 Essential (primary) hypertension; I48.91 Unspecified atrial fibrillation; G43.909 Migraine, unspecified, not intractable, without status migrainosus; Z88.1 Allergy status to other antibiotic agents; Z88.0 Allergy status to penicillin; Z79.899 Other long term (current) drug therapy
CPT/HCPCS: 93005; 93010; 99284; 99284-25

== ENCOUNTER 2019-11-26 07:55 | Emergency (ER) | payer MEDICARE, OTHER ==
[2019-11-26 08:12] VITALS: BP 146/99; PULSE 60
--- NOTE | 2019-11-26 08:36 | EDM.PDOC ---
ED HPI GENERAL MEDICAL PROBLEM - General Chief Complaint: ENT Problem Stated Complaint: NOSE BLEED Time Seen by Provider: 11/26/19 08:20 Source of Information: Reports: Patient, Old Records History Limitations: Reports: No Limitations - History of Present Illness INITIAL COMMENTS - FREE TEXT/NARRATIVE: 69 yo female on Xarelto presents this morning to the ER after development of a spontaneous nose bleed. She denies trauma. Has not had a nose bleed for over a year. Has been on Xarelto for over a year. Thinks most of the bleeding was from the left nares. 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) - Related Data Allergies Allergy/AdvReac Type Severity Reaction Status Date / Time azithromycin [From Zithromax] Allergy Itching Verified 11/26/19 08:06 Penicillins Allergy Respiratory Verified 11/26/19 08:06 Distress Home Meds: Home Meds Benzonatate 1 tab PO TID PRN 06/26/14 [History] Albuterol [Ventolin HFA] 1 puff INH ASDIRECTED PRN 04/20/17 [History] Ranitidine HCl [Ranitidine] 150 mg PO BID 04/20/17 [History] Prsow-5-Bfstdijuid Inhibitor [Glassia] 1 gm IV WEEKLY 08/20/17 [History] SUMAtriptan 50 mg PO ASDIRECTED PRN 08/20/17 [History] Ubidecarenone [Coenzyme Q10] 100 mg PO DAILY 08/20/17 [History] Furosemide [Lasix] 20 mg PO DAILY 09/11/17 [History] Calcium Carb/Magnesium Cmb #10 [Yovanny-Mag] 2 tab PO DAILY 09/23/17 [History] Fluticasone/Salmeterol [Advair 100-50] 1 inh PO BID 09/23/17 [History] Rivaroxaban [Xarelto] 20 mg PO BEDTIME 05/29/18 [History] Pravastatin Sodium 0.5 tab PO DAILY 11/17/18 [History] Sotalol [Betapace] 120 mg PO DAILY 07/30/19 [History] Past Medical History HEENT History: Reports: Impaired Vision Cardiovascular History: Reports: Afib, High Cholesterol, Hypertension, Pacemaker Other Cardiovascular History: angioplasty cardioversion Respiratory History: Reports: Other (See Below) Other Respiratory History: alpha 1 antitrypsin deficiency 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 History: Reports: GERD 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: Neurological History: Reports: Migraines Hematologic History: Reports: Anticoagulation Therapy - Infectious Disease History Infectious Disease History: Reports: Chicken Pox, Measles, Mumps - Past Surgical History Cardiovascular Surgical History: Reports: Pacer Other Cardiovascular Surgeries/Procedures: pacemaker placed on 09/22/17 Respiratory Surgical History: Reports: None GI Surgical History: Reports: Appendectomy Female Surgical History: Reports: Oophorectomy Social & Family History - Family History Family Medical History: Noncontributory - Tobacco Use Smoking Status *Q: Never Smoker - Caffeine Use Caffeine Use: Reports: None - Recreational Drug Use Recreational Drug Use: No ED ROS ENT - Review of Systems Review Of Systems: See Below Constitutional: Reports: No Symptoms HEENT: Reports: Nosebleed Respiratory: Reports: No Symptoms Cardiovascular: Reports: No Symptoms Skin: Reports: No Symptoms. Denies: Bruising Neurological: Reports: No Symptoms ED EXAM, ENT - Physical Exam Exam: See Below Exam Limited By: No Limitations General Appearance: Alert, WD/WN, No Apparent Distress Eye Exam: Bilateral Eye: Normal Inspection Ears: Normal External Exam, Normal Canal, Hearing Grossly Normal, Normal TMs Nose: Active Bleeding. No: Nasal Deformity, Nasal Tenderness Mouth/Throat: Normal Inspection, Normal Lips, Normal Oropharynx Head: Atraumatic, Normocephalic Neck: Normal Inspection Respiratory/Chest: No Respiratory Distress, No Accessory Muscle Use Extremities: Normal Inspection Neurological: Alert, Oriented, CN II-XII Intact, Normal Cognition, No Motor/ Sensory Deficits Psychiatric: Normal Affect, Normal Mood Skin: Warm, Dry, Intact, Normal Color, No Rash ED ENT PROCEDURES - Epistaxis Procedure Indication: Epistaxis Recent anticoagulants/antiplatlets: Yes (Xarelto) Uncontrolled HTN: No Recent septal/nasal surgery: No Site of bleeding: Left Nare Clearing of clots: Patient Blew Nose Ice pack to area: No Anterior Packing: Other (7.5 cm Rhinorocket) Posterior packing: Other (7.5 cm Rhinorocket) Complications: No (Bleeding controlled after placement of Rhinorocket) Course - Vital Signs Last Recorded V/S: Last Vital Signs Temp 36.2 C 11/26/19 08:11 Pulse 60 11/26/19 08:11 Resp 12 11/26/19 08:11 BP 146/99 H 11/26/19 08:11 Pulse Ox 98 11/26/19 08:11 Departure - Departure Time of Disposition: 09:05 Disposition: Home, Self-Care 01 Condition: Good Clinical Impression: Epistaxis - Discharge Information *PRESCRIPTION DRUG MONITORING PROGRAM REVIEWED*: Not Applicable *COPY OF PRESCRIPTION DRUG MONITORING REPORT IN PATIENT ELE: Not Applicable Instructions: Nosebleed, [id number]-Lwvv Referrals: Chava Quintero MD [Primary Care Provider] - Additional Instructions: Continue your current medications. Use acetaminophen up to 1000 mg every 6 hrs for pain relief. Call your doctor to arrange an early Friday morning removal of your Rhinorocket. If your clinic won't do this for you, then return here on Friday late afternoon or early evening for removal. Return here in the interim as needed. Sepsis Event Note (ED) - Evaluation Sepsis Screening Result: No Definite Risk - Focused Exam Vital Signs: Vital Signs Temp Pulse Resp BP Pulse Ox 11/26/19 08:11 36.2 C 60 12 146/99 H 98
== END 2019-11-26 09:26 | disposition home or self-care (01) ==
LOC: JP.ED 07:55
DX: R04.0 Epistaxis (principal); I48.91 Unspecified atrial fibrillation; E78.00 Pure hypercholesterolemia, unspecified; I10 Essential (primary) hypertension; K21.9 Gastro-esophageal reflux disease without esophagitis; G43.909 Migraine, unspecified, not intractable, without status migrainosus; Z79.899 Other long term (current) drug therapy; Z88.1 Allergy status to other antibiotic agents; Z88.0 Allergy status to penicillin; Z79.01 Long term (current) use of anticoagulants
CPT/HCPCS: 30901; 30903; 30905; 99283-25

== ENCOUNTER 2019-11-28 18:23 | Emergency (ER) | payer MEDICARE, OTHER ==
[2019-11-28 19:15] VITALS: BP 148/101; PULSE 82
--- NOTE | 2019-11-28 19:37 | EDM.PDOC ---
ED HPI GENERAL MEDICAL PROBLEM - General Chief Complaint: ENT Problem Stated Complaint: REMOVE NASAL TUBE Time Seen by Provider: 11/28/19 19:29 Source of Information: Reports: Patient History Limitations: Reports: No Limitations - History of Present Illness INITIAL COMMENTS - FREE TEXT/NARRATIVE: The patient is in for removal of nasal tampon put in for epistaxis two days ago. She is Xarelto. She denies any problems or symptoms of ENT problems. She is not on abx prophylaxis. - Related Data Allergies Allergy/AdvReac Type Severity Reaction Status Date / Time azithromycin [From Zithromax] Allergy Itching Verified 11/28/19 19:30 Penicillins Allergy Respiratory Verified 11/28/19 19:30 Distress Home Meds: Home Meds Benzonatate 1 tab PO TID PRN 06/26/14 [History] Albuterol [Ventolin HFA] 1 puff INH ASDIRECTED PRN 04/20/17 [History] [place]-5-Cxqnvvlwqx Inhibitor [Glassia] 1 gm IV WEEKLY 08/20/17 [History] SUMAtriptan 50 mg PO ASDIRECTED PRN 08/20/17 [History] Ubidecarenone [Coenzyme Q10] 100 mg PO DAILY 08/20/17 [History] Furosemide [Lasix] 20 mg PO DAILY 09/11/17 [History] Calcium Carb/Magnesium Cmb #10 [Yovanny-Mag] 2 tab PO DAILY 09/23/17 [History] Fluticasone/Salmeterol [Advair 100-50] 1 inh PO BID 09/23/17 [History] Rivaroxaban [Xarelto] 20 mg PO BEDTIME 05/29/18 [History] Pravastatin Sodium 0.5 tab PO DAILY 11/17/18 [History] Sotalol [Betapace] 120 mg PO DAILY 07/30/19 [History] Famotidine 20 mg PO BID 11/28/19 [History] Past Medical History HEENT History: Reports: Impaired Vision Cardiovascular History: Reports: Afib, High Cholesterol, Hypertension, Pacemaker Other Cardiovascular History: angioplasty cardioversion Respiratory History: Reports: Other (See Below) Other Respiratory History: alpha 1 antitrypsin deficiency 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 History: Reports: 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: Neurological History: Reports: Migraines Hematologic History: Reports: Anticoagulation Therapy - Infectious Disease History Infectious Disease History: Reports: Chicken Pox, Measles, Mumps - Past Surgical History Cardiovascular Surgical History: Reports: Pacer Other Cardiovascular Surgeries/Procedures: pacemaker placed on 09/22/17 Respiratory Surgical History: Reports: None GI Surgical History: Reports: Appendectomy Female Surgical History: Reports: Oophorectomy Social & Family History - Family History Family Medical History: Noncontributory - Caffeine Use Caffeine Use: Reports: None ED ROS ENT - Review of Systems Review Of Systems: See Below Constitutional: Reports: No Symptoms. Denies: Fever, Chills HEENT: Reports: No Symptoms. Denies: Ear Discharge, Ear Pain, Nosebleed, Rhinitis, Sinus Problem, Throat Pain Respiratory: Reports: No Symptoms. Denies: Shortness of Breath, Cough GI/Abdominal: Reports: No Symptoms. Denies: Nausea : Denies: No Symptoms Skin: Reports: No Symptoms Neurological: Reports: No Symptoms ED EXAM, ENT - Physical Exam Exam: See Below Exam Limited By: No Limitations General Appearance: Alert, WD/WN, No Apparent Distress Nose: Other (nasal tampon in place with no bleeding) Course - Vital Signs Text/Narrative:: She has a Rapid Rhino nasal tampon in the left nostril. She is anticoagulated and is doing well but I advised her to keep it in place for another two days. She agreed and I put her on prophylaxis of Keflex 500 mg BID for 7 days. She will have the tampon removed in two days by her doctor or return to ER. Last Recorded V/S: Last Vital Signs Temp 36.9 C 11/28/19 19:13 Pulse 82 11/28/19 19:13 Resp 16 11/28/19 19:13 BP 148/101 H 11/28/19 19:13 Pulse Ox 93 L 11/28/19 19:13 Departure - Departure Time of Disposition: 19:35 Disposition: Home, Self-Care 01 Condition: Good Clinical Impression: Anterior epistaxis - Discharge Information Referrals: Chava Quintero MD [Primary Care Provider] - Additional Instructions: See your doctor in two days for removal of the nasal tampon. Take Keflex as prescribed. Sepsis Event Note (ED) - Focused Exam Vital Signs: Vital Signs Temp Pulse Resp BP Pulse Ox 11/28/19 19:13 36.9 C 82 16 148/101 H 93 L
== END 2019-11-28 19:41 | disposition home or self-care (01) ==
LOC: JP.ED 18:23
DX: R04.0 Epistaxis (principal); I48.91 Unspecified atrial fibrillation; E78.00 Pure hypercholesterolemia, unspecified; I10 Essential (primary) hypertension; Z79.01 Long term (current) use of anticoagulants; Z79.899 Other long term (current) drug therapy; Z88.1 Allergy status to other antibiotic agents; Z88.0 Allergy status to penicillin
CPT/HCPCS: 99282

== ENCOUNTER 2019-11-30 15:30 | Emergency (ER) | payer MEDICARE, OTHER ==
[2019-11-30 16:19] VITALS: BP 148/104; PULSE 66
--- NOTE | 2019-11-30 16:33 | EDM.PDOC ---
ED HPI GENERAL MEDICAL PROBLEM - General Chief Complaint: ENT Problem Stated Complaint: REMOVE LINE IN NOSE Time Seen by Provider: 11/30/19 16:20 Source of Information: Reports: Patient, RN History Limitations: Reports: No Limitations - History of Present Illness INITIAL COMMENTS - FREE TEXT/NARRATIVE: patient presents to the ED to have her rhino rocket removed from her left nare. She reports no active bleeding since it was placed. - Related Data Allergies Allergy/AdvReac Type Severity Reaction Status Date / Time azithromycin [From Zithromax] Allergy Itching Verified 11/30/19 16:13 Penicillins Allergy Respiratory Verified 11/30/19 16:13 Distress Home Meds: Home Meds Benzonatate 1 tab PO TID PRN 06/26/14 [History] Albuterol [Ventolin HFA] 1 puff INH ASDIRECTED PRN 04/20/17 [History] Hsito-5-Wdoqueqcrx Inhibitor [Glassia] 1 gm IV WEEKLY 08/20/17 [History] SUMAtriptan 50 mg PO ASDIRECTED PRN 08/20/17 [History] Ubidecarenone [Coenzyme Q10] 100 mg PO DAILY 08/20/17 [History] Furosemide [Lasix] 20 mg PO BEDTIME 09/11/17 [History] Calcium Carb/Magnesium Cmb #10 [Yovanny-Mag] 2 tab PO DAILY 09/23/17 [History] Fluticasone/Salmeterol [Advair 100-50] 1 inh PO BID 09/23/17 [History] Rivaroxaban [Xarelto] 20 mg PO BEDTIME 05/29/18 [History] Pravastatin Sodium 0.5 tab PO BEDTIME 11/17/18 [History] Sotalol [Betapace] 120 mg PO BEDTIME 07/30/19 [History] Famotidine 20 mg PO BID 11/28/19 [History] Past Medical History HEENT History: Reports: Epistaxis, Impaired Vision Other HEENT History: nosebleed Cardiovascular History: Reports: Afib, High Cholesterol, Hypertension, Pacemaker Other Cardiovascular History: angioplasty cardioversion Respiratory History: Reports: Other (See Below) Other Respiratory History: alpha 1 antitrypsin deficiency 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 History: Reports: GERD [employer]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: Neurological History: Reports: Migraines Hematologic History: Reports: Anticoagulation Therapy - Infectious Disease History Infectious Disease History: Reports: Chicken Pox, Measles, Mumps - Past Surgical History Cardiovascular Surgical History: Reports: Pacer Other Cardiovascular Surgeries/Procedures: pacemaker placed on 09/22/17 Respiratory Surgical History: Reports: None GI Surgical History: Reports: Appendectomy Female Surgical History: Reports: Oophorectomy Social & Family History - Family History Family Medical History: Noncontributory - Tobacco Use Smoking Status *Q: Never Smoker - Caffeine Use Caffeine Use: Reports: None - Alcohol Use Days Per Week of Alcohol Use: 1 Number of Drinks Per Day: 1 Total Drinks Per Week: 1 - Recreational Drug Use Recreational Drug Use: No ED ROS ENT - Review of Systems Review Of Systems: Comprehensive ROS is negative, except as noted in HPI. ED EXAM, ENT - Physical Exam Exam: See Below Exam Limited By: No Limitations General Appearance: Alert, WD/WN, No Apparent Distress Nose: Normal Inspection, Normal Mucousa, No Blood, Other (scab noted to left outer nasal mucosa. no active bleeding or oozing/ ) Course - Vital Signs Last Recorded V/S: Last Vital Signs Temp 96.8 F L 11/30/19 16:18 Pulse 66 11/30/19 16:18 Resp 14 11/30/19 16:18 BP 148/104 H 11/30/19 16:18 Pulse Ox 95 11/30/19 16:18 - Re-Assessments/Exams Free Text/Narrative Re-Assessment/Exam: 11/30/19 16:30 Nasal rhino rocket removed without incident or complications. Departure - Departure Time of Disposition: 16:30 Disposition: Home, Self-Care 01 Clinical Impression: History of epistaxis - Discharge Information *PRESCRIPTION DRUG MONITORING PROGRAM REVIEWED*: Not Applicable *COPY OF PRESCRIPTION DRUG MONITORING REPORT IN PATIENT ELE: Not Applicable Referrals: Chava Quintero MD [Primary Care Provider] - Forms: ED Department Discharge Additional Instructions: Do not blow your nose or put anything in it. You may use the ky jelly for lubrication in there like you have done in the past. Call or return to the ED with any worsening of symptoms. Sepsis Event Note (ED) - Evaluation Sepsis Screening Result: No Definite Risk - Focused Exam Vital Signs: Vital Signs Temp Pulse Resp BP Pulse Ox 11/30/19 16:18 96.8 F L 66 14 148/104 H 95 - Assessment/Plan Plan: discharge to home.
== END 2019-11-30 17:09 | disposition home or self-care (01) ==
LOC: JP.ED 15:30
DX: Z48.00 Encounter for change or removal of nonsurgical wound dressing (principal); I48.91 Unspecified atrial fibrillation; I10 Essential (primary) hypertension; E78.00 Pure hypercholesterolemia, unspecified; K21.9 Gastro-esophageal reflux disease without esophagitis; G43.909 Migraine, unspecified, not intractable, without status migrainosus; Z88.0 Allergy status to penicillin; Z88.1 Allergy status to other antibiotic agents; Z79.899 Other long term (current) drug therapy
CPT/HCPCS: 99282

== ENCOUNTER 2021-02-02 16:08 | Emergency (ER) | payer MEDICARE, OTHER ==
--- NOTE | 2021-02-02 16:45 | EDM.PDOC ---
ED HPI GENERAL MEDICAL PROBLEM - General Chief Complaint: Respiratory Problem Stated Complaint: RETAINING FLUID, SOB Time Seen by Provider: 02/02/21 16:45 Source of Information: Reports: Patient, RN Notes Reviewed History Limitations: Reports: No Limitations - History of Present Illness INITIAL COMMENTS - FREE TEXT/NARRATIVE: Lora presents today with complains of SOB with activity and bilateral lower leg edema for the past 2 weeks. She reports her weight has had a gradual weight gain of 2 lbs the past two weeks. She states she cannot get dressed for the day without stopping to breath and catch her breath. She reports she has also been having to elevate the head of her bed at night to help with her breathing. She states she does not use oxygen at home. Lora also reports a sharp twinge of pain to the left chest off and on that will last from a few seconds to a minute then go away. She reports nothing seems to cause the pain and the pain goes away on its own. She complaints of cough at times with clear mucus production in small amounts. she denies fever, chills, nausea, vomiting, change in bowel/bladder or other concerns. Lora contacted her cardiology from [place] and they instructed her to report to the emergency room, have a BNP, BMP done and to think about taking torsemide. - Related Data Allergies Allergy/AdvReac Type Severity Reaction Status Date / Time azithromycin [From Zithromax] Allergy Itching Verified 02/02/21 16:28 Penicillins Allergy Respiratory Verified 02/02/21 16:28 Distress Home Meds: Home Meds Benzonatate 1 tab PO TID PRN 06/26/14 [History] Albuterol [Ventolin HFA] 1 puff INH ASDIRECTED PRN 04/20/17 [History] Xtkoc-4-Xhmxudetzs Inhibitor [Glassia] 1 gm IV WEEKLY 08/20/17 [History] SUMAtriptan 50 mg PO ASDIRECTED PRN 08/20/17 [History] Ubidecarenone [Coenzyme Q10] 100 mg PO DAILY 08/20/17 [History] Furosemide [Lasix] 20 mg PO BID 09/11/17 [History] Calcium Carb/Magnesium Cmb #10 [Yovanny-Mag] 2 tab PO BID 09/23/17 [History] Fluticasone/Salmeterol [Advair 100-50] 1 inh PO BID 09/23/17 [History] Rivaroxaban [Xarelto] 20 mg PO BEDTIME 05/29/18 [History] Pravastatin Sodium 10 mg PO BEDTIME 11/17/18 [History] Sotalol [Betapace] 120 mg PO BEDTIME 07/30/19 [History] Famotidine 20 mg PO BID 11/28/19 [History] Cholecalciferol (Vitamin D3) [Vitamin D3] 400 unit PO Q48H 10/18/20 [History] Flaxseed Oil [Flaxseed] 2,000 mg PO BID 10/18/20 [History] Lutein 10 mg PO BID 10/18/20 [History] Past Medical History HEENT History: Reports: Epistaxis, Impaired Vision Other HEENT History: nosebleed Cardiovascular History: Reports: Afib, High Cholesterol, Hypertension, Pacemaker Other Cardiovascular History: angioplasty cardioversion Respiratory History: Reports: Other (See Below) Other Respiratory History: alpha 1 antitrypsin deficiency 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: Neurological History: Reports: Migraines Hematologic History: Reports: Anticoagulation Therapy - Infectious Disease History Infectious Disease History: Reports: Chicken Pox, Measles, Mumps - Past Surgical History Cardiovascular Surgical History: Reports: Pacer Other Cardiovascular Surgeries/Procedures: pacemaker placed on 09/22/17 Respiratory Surgical History: Reports: None GI Surgical History: Reports: Appendectomy Female Surgical History: Reports: Oophorectomy Social & Family History - Family History Family Medical History: No Pertinent Family History - Tobacco Use Tobacco Use Status *Q: Never Tobacco User - Caffeine Use Caffeine Use: Reports: None ED ROS GENERAL - Review of Systems Review Of Systems: See Below Constitutional: Reports: Weight Gain (2 lb weight gain the past 2 weeks). Denies: Fever, Chills, Malaise, Weakness, Fatigue, Night Sweats, Diaphoresis HEENT: Reports: No Symptoms Respiratory: Reports: Shortness of Breath (with activity), Cough (most often at night, no SOB at rest). Denies: Wheezing, Pleuritic Chest Pain, Sputum Cardiovascular: Reports: Chest Pain (for a few seconds to a minute then goes away), Dyspnea on Exertion, Edema (bilateral lower extremities from feet to mid- calf), Orthopnea, PND. Denies: Blood Pressure Problem, Claudication, Lightheadedness, Palpitations, Syncope Endocrine: Reports: No Symptoms GI/Abdominal: Reports: No Symptoms : Reports: No Symptoms Musculoskeletal: Reports: No Symptoms Skin: Reports: No Symptoms Neurological: Reports: No Symptoms Psychiatric: Reports: No Symptoms Hematologic/Lymphatic: Reports: No Symptoms Immunologic: Reports: No Symptoms ED EXAM, GENERAL - Physical Exam Exam: See Below Exam Limited By: No Limitations General Appearance: Alert, WD/WN, No Apparent Distress Eye Exam: Bilateral Eye: Normal Inspection, PERRL Ears: Normal External Exam, Normal Canal, Hearing Grossly Normal, Normal TMs Ear Exam: Bilateral Ear: TM normal Throat/Mouth: Normal Inspection, Normal Lips, Normal Teeth, Normal Gums, Normal Oropharynx, Normal Voice, No Airway Compromise Head: Atraumatic, Normocephalic Neck: Normal Inspection, Supple, Non-Tender, Full Range of Motion. No: Lymphadenopathy (R), Lymphadenopathy (L) Respiratory/Chest: No Respiratory Distress, No Accessory Muscle Use, Chest Non- Tender, Decreased Breath Sounds, Other (Dyspnea with tranfering from bed to standing or to bathroom. Patient able to condut conversation without labored breathing. ). No: Crackles, Rales, Rhonchi, Wheezing, Stridor, Pleural Rub, Accessory Muscle Use, Retractions, Splinting, Prolonged Expiration Cardiovascular: Normal Peripheral Pulses, Systolic Murmur, Irregularly Irregular, Other (atrial fib/flutter) Peripheral Pulses: 4+: Radial (L), Radial (R), Dorsalis Pedis (L), Dorsalis Pedis (R) GI/Abdominal: Normal Bowel Sounds, Soft, Non-Tender, No Organomegaly, No Distention, No Mass. No: Guarding, Rigid, Rebound, Tender (Female) Exam: Deferred Rectal (Female) Exam: Deferred Back Exam: Normal Inspection, Full Range of Motion. No: CVA Tenderness (R), CVA Tenderness (L) Extremities: Normal Range of Motion, Non-Tender, Normal Capillary Refill, Other (3+ edema bilateral lower extremity edema ) Neurological: Alert, Oriented, CN II-XII Intact, Normal Cognition, Normal Gait, Normal Reflexes, No Motor/Sensory Deficits Psychiatric: Normal Affect, Normal Mood Skin Exam: Warm, Dry, Intact, Normal Color, No Rash. No: Diaphoretic, Ecchymosis, Erythema, Increased Warmth, Petechiae, Rash, Wound/Incision Lymphatic: No Adenopathy #1 Interpretation EKG Date: 02/02/21 Time: 17:15 Rhythm: Other (Afib/flutter) Rate (Beats/Min): 62 Comparison: No Change Course - Vital Signs Last Recorded V/S: Last Vital Signs Temp 36.2 C 02/02/21 16:42 Pulse 65 02/02/21 20:20 Resp 24 H 02/02/21 19:25 BP 155/96 H 02/02/21 20:20 Pulse Ox 95 02/02/21 19:25 - Orders/Labs/Meds Orders: Active Orders 24 hr Category Date Time Status Chest 2V [CR] Stat Exams 02/02/21 17:04 Taken Saline Lock Insert [OM.PC] Routine Oth 02/02/21 17:04 Ordered EKG 12 Lead [EK] Routine Ther 02/02/21 17:04 Ordered Labs: Laboratory Tests 02/02/21 02/02/21 Range/Units 17:21 17:21 WBC 7.7 (4.5-11.0) K/uL RBC 4.59 (3.30-5.50) M/uL Hgb 14.1 (12.0-15.0) g/dL Hct 41.4 (36.0-48.0) % MCV 90 (80-98) fL MCH 31 (27-31) pg MCHC 34 (32-36) % Plt Count 317 (150-400) K/uL Neut % (Auto) 65.7 (36-66) % Lymph % (Auto) 17.4 L (24-44) % [place]ill % (Auto) 14.0 H (2-6) % Eos % (Auto) 2.1 (2-4) % Baso % (Auto) 0.8 (0-1) % Sodium 135 L (140-148) mmol/L Potassium 3.9 (3.6-5.2) mmol/L Chloride 98 L (100-108) mmol/L Carbon Dioxide 25 (21-32) mmol/L Anion Gap 15.9 H (5.0-14.0) mmol/L BUN 13 (7-18) mg/dL Creatinine 0.8 (0.6-1.0) mg/dL Est Cr Clr Drug Dosing 54.90 mL/min Estimated GFR (MDRD) > 60 (>60) Glucose 112 H (74-106) mg/dL Calcium 8.7 (8.5-10.1) mg/dL Total Bilirubin 0.5 (0.2-1.0) mg/dL AST 26 (15-37) U/L ALT 24 (12-78) U/L Alkaline Phosphatase 146 H (46-116) U/L Troponin I 0.038 (0.000-0.056) ng/mL NT-Pro-B Natriuret Pep 24523 H (5-125) pg/mL Total Protein 7.0 (6.4-8.2) g/dL Albumin 3.3 L (3.4-5.0) g/dL Globulin 3.7 H (2.3-3.5) g/dL Albumin/Globulin Ratio 0.9 L (1.2-2.2) TSH, Ultra Sensitive 2.640 (0.358-3.740) uIU/mL Patient lab work discussed with her, ProBNP significantly elevated, troponin negative. We will administer furosemide 40mg IV, monitor and discharge if stable. Patient in agreement with plan. Meds: Medications Discontinued Medications Generic Name Dose Route Start Last Admin Trade Name Freq PRN Reason Stop Dose Admin Furosemide 40 mg 02/02/21 18:16 02/02/21 18:47 Furosemide 40 Mg/4 Ml Vial IVPUSH 02/02/21 18:17 40 mg ONETIME ONE Administration Furosemide 20 mg 02/02/21 19:55 02/02/21 20:01 Furosemide 20 Mg/2 Ml Vial IVPUSH 02/02/21 19:56 20 mg ONETIME ONE Administration Sodium Chloride 10 ml 02/02/21 17:04 02/02/21 18:48 Sodium Chloride 0.9% 10 Ml Syringe FLUSH 10 ml ASDIRECTED PRN Administration Keep Vein Open - Radiology Interpretation Free Text/Narrative:: Chest x-ray wet read and reviewed. Noted cardiomegaly, not significantly increased compared to most recent chest x-ray. Radiologist read pending. - Re-Assessments/Exams Free Text/Narrative Re-Assessment/Exam: 02/02/21 19:56 Patient tolerating IV furosemide well, 1100ml voided. Hypertension 150s/90s We will administer additional furosemide 20mg IV. Discussion on limiting oral fluids to 2000ml PO daily as well as watching for sodium in diet. Lora verbalized understanding. All her questions were answered. Case reviewed with Dr. Salinas, he is in agreement with plan. Departure - Departure Time of Disposition: 20:30 Disposition: Home, Self-Care 01 Condition: Fair Clinical Impression: CHF (congestive heart failure) - Discharge Information Instructions: Heart Failure, Diagnosis, [id number] Referrals: Chava Quintero MD [Primary Care Provider] - Forms: ED Department Discharge Additional Instructions: You have been evaluated and treated for for congestive heart failure exacerbation. ProBNP 53216 significantly elevated Trop 0.038 normal TSH 2.640 You were given 60mg IV furosemide in divided doses with good results. Take furosemide 60mg by mouth once daily for 5 days then decrease dose to your usual 20mg by mouth twice a day per your routine use. Please follow up with Dr. Quintero on FridayFebruary 05 for a recheck and any medications or adjustments needed. Return at any time for any worsening, shortness of breath, chest pain or any other concerns. Sepsis Event Note (ED) - Evaluation Sepsis Screening Result: No Definite Risk - Focused Exam Vital Signs: Vital Signs Temp Pulse Resp BP Pulse Ox 02/02/21 20:20 65 155/96 H 02/02/21 20:03 63 156/99 H 02/02/21 19:25 60 24 H 162/99 H 95 02/02/21 19:10 79 23 H 181/105 H 93 L 02/02/21 18:14 59 L 18 134/92 H 96 02/02/21 17:38 68 22 H 135/91 H 95 02/02/21 16:54 61 13 135/88 96 02/02/21 16:42 36.2 C 61 19 142/93 H 97 02/02/21 16:25 61 19 159/101 H 97 02/02/21 16:08 36.2 C 74 20 172/111 H 91 L - My Orders Last 24 Hours: My Active Orders 02/02/21 17:04 Chest 2V [CR] Stat Saline Lock Insert [OM.PC] Routine EKG 12 Lead [EK] Routine - Assessment/Plan Last 24 Hours: My Active Orders 02/02/21 17:04 Chest 2V [CR] Stat Saline Lock Insert [OM.PC] Routine EKG 12 Lead [EK] Routine Assessment:: CHF (congestive heart failure) Plan: Patient evaluated and treated for for congestive heart failure exacerbation. ProBNP 42290 significantly elevated Trop 0.038 normal TSH 2.640 She was given 60mg IV furosemide in divided doses with good results. Take furosemide 60mg by mouth once daily for 5 days then decrease dose to usual 20mg by mouth twice a day per routine use. Please follow up with Dr. Quintero on FridayFebruary 05 for a recheck and any medications or adjustments needed. Return at any time for any worsening, shortness of breath, chest pain or any other concerns.
[2021-02-02] MEDS ORDERED: Sodium Chloride 0.9% 10 ML Syringe FLUSH PRN (17:04)
[2021-02-02] MEDS ORDERED: Furosemide 40 MG/4 ML VIAL IVPUSH ONE (18:16)
[2021-02-02] MEDS ORDERED: Furosemide 20 MG/2 ML VIAL IVPUSH ONE (19:55)
[2021-02-02 20:21] VITALS: BP 155/96; PULSE 65
--- NOTE | 2021-02-05 09:35 | CR ---
CHEST: 2 view CLINICAL HISTORY:Dyspnea COMPARISON:2018 FINDINGS: Heart size is normal. Patient has a permanent cardiac pacer The pulmonary vascularity is mildly cephalized. There is diffuse interstitial prominence. There is some patchy density in the right lower lobe which is new since prior study. Impression: Generalized interstitial prominence may represent some interstitial edema or pneumonitis Patchy right lower lobe density is suspect for pneumonic infiltrate.
== END 2021-02-02 20:41 | disposition home or self-care (01) ==
LOC: JP.ED 16:08
DX: I11.0 Hypertensive heart disease with heart failure (principal); I50.9 Heart failure, unspecified; E78.00 Pure hypercholesterolemia, unspecified; Z95.0 Presence of cardiac pacemaker; Z88.1 Allergy status to other antibiotic agents; Z88.0 Allergy status to penicillin; Z79.899 Other long term (current) drug therapy
CPT/HCPCS: 36415; 71046; 80053; 83880; 84443; 84484; 85025; 93005; 96374; 96376; 99285; J1940

== ENCOUNTER 2023-01-18 01:14 | Emergency (ER) | payer MEDICARE, OTHER ==
[2023-01-18] MEDS ORDERED: Oxymetazoline 0.05% Nasal Spray 30 ML Bottle NAS STA (01:16)
[2023-01-18] MEDS ORDERED: Tranexamic Acid 1,000 MG/10 ML Vial TOP ONE (01:17)
[2023-01-18 01:35] VITALS: BP 117/73; PULSE 70
== END 2023-01-18 02:57 | disposition home or self-care (01) ==
LOC: JP.ED 01:14
DX: R04.0 Epistaxis (principal); J44.9 Chronic obstructive pulmonary disease, unspecified; I48.20 Chronic atrial fibrillation, unspecified; I10 Essential (primary) hypertension; K21.9 Gastro-esophageal reflux disease without esophagitis; E78.00 Pure hypercholesterolemia, unspecified; Z79.01 Long term (current) use of anticoagulants; Z79.899 Other long term (current) drug therapy; Z88.0 Allergy status to penicillin; Z88.1 Allergy status to other antibiotic agents
CPT/HCPCS: 30905; 99283; A9270; 30901; 99284

== ENCOUNTER 2023-01-20 11:03 | Emergency (ER) | payer MEDICARE, OTHER ==
[2023-01-20 11:35] VITALS: BP 112/75; PULSE 77
== END 2023-01-20 12:50 | disposition home or self-care (01) ==
LOC: JP.ED 11:03
DX: R04.0 Epistaxis (principal); E78.00 Pure hypercholesterolemia, unspecified; I48.91 Unspecified atrial fibrillation; I10 Essential (primary) hypertension; Z87.891 Personal history of nicotine dependence; Z95.0 Presence of cardiac pacemaker; Z79.02 Long term (current) use of antithrombotics/antiplatelets; Z79.899 Other long term (current) drug therapy; Z88.0 Allergy status to penicillin; Z88.1 Allergy status to other antibiotic agents
CPT/HCPCS: 99282

== ENCOUNTER 2023-02-02 10:26 | Emergency (ER) | payer MEDICARE, OTHER ==
[2023-02-02 11:53] VITALS: BP 114/70; PULSE 60
[2023-02-02 12:08] LABS: HEMATOCRIT 40.4 % (34.3-46.0); HEMOGLOBIN 13.8 g/dL (11.2-15.5); MEAN CORPUSCULAR HEMOGLOBIN 31.4 pg (31.6-35.5); MEAN CORPUSCULAR HGB CONC 34.2 g/dL (31.6-35.5); RED BLOOD CELL COUNT 4.39 M/uL (3.77-5.24); WHITE BLOOD CELL COUNT,WBC 6.2 K/uL (3.2-11.0)
== END 2023-02-02 12:48 | disposition home or self-care (01) ==
LOC: JP.ED 10:26
DX: R04.0 Epistaxis (principal); I48.91 Unspecified atrial fibrillation; I10 Essential (primary) hypertension; E78.00 Pure hypercholesterolemia, unspecified; J44.9 Chronic obstructive pulmonary disease, unspecified; I25.2 Old myocardial infarction; K21.9 Gastro-esophageal reflux disease without esophagitis; Z95.0 Presence of cardiac pacemaker; Z88.0 Allergy status to penicillin; Z88.1 Allergy status to other antibiotic agents; Z79.01 Long term (current) use of anticoagulants
CPT/HCPCS: 36415; 85027; 99283

== ENCOUNTER 2023-02-05 23:30 | Emergency (ER) | payer MEDICARE, OTHER ==
[2023-02-05 23:46] VITALS: BP 133/79; PULSE 62
[2023-02-06] MEDS ORDERED: Oxymetazoline 0.05% Nasal Spray 30 ML Bottle NAS ONE (00:12)
== END 2023-02-06 01:16 | disposition home or self-care (01) ==
LOC: JP.ED 23:30
DX: R04.0 Epistaxis (principal); J44.9 Chronic obstructive pulmonary disease, unspecified; E78.00 Pure hypercholesterolemia, unspecified; I10 Essential (primary) hypertension; Z88.0 Allergy status to penicillin; Z88.1 Allergy status to other antibiotic agents; Z79.899 Other long term (current) drug therapy; Z90.49 Acquired absence of other specified parts of digestive tract
CPT/HCPCS: 30903; 99283; A9270

== ENCOUNTER 2023-05-15 14:53 | Emergency (ER) | payer MEDICARE, OTHER ==
[2023-05-15] MEDS ORDERED: Sodium Chloride 0.9% 10 ML Syringe FLUSH PRN (15:27)
[2023-05-15] MEDS ORDERED: Sodium Chloride 0.9% 1,000 ML IV STA (15:27)
[2023-05-15] MEDS ORDERED: fentaNYL 100 MCG/2 ML SDV IVPUSH ONE (15:29)
[2023-05-15] MEDS ORDERED: Ondansetron 4 MG/2 ML SDV IVPUSH ONE (15:29)
[2023-05-15 15:39] LABS: BASOPHILS PERCENT AUTO 0.1 % (0.1-1.3); EOSINOPHILS ABSOLUTE AUTO 0.03 K/uL (0.00-0.40); EOSINOPHILS PERCENT AUTO 0.3 % (0.0-5.4); HEMATOCRIT 40.7 % (34.3-46.0); HEMOGLOBIN 13.9 g/dL (11.2-15.5); IMMATURE GRAN ABSOLUTE AUTO 0.04 K/uL (0.00-0.23); IMMATURE GRAN PERCENT AUTO 0.4 % (0.0-0.7); LYMPHOCYTES PERCENT AUTO 6.8 % (11.4-47.7); MEAN CORPUSCULAR HEMOGLOBIN 30.4 pg (31.6-35.5); MEAN CORPUSCULAR HGB CONC 34.2 g/dL (31.6-35.5); MEAN CORPUSCULAR VOLUME 89.1 fL (81.4-99.0); MONOCYTES ABSOLUTE AUTO 0.81 K/uL (0.20-0.90); MONOCYTES PERCENT AUTO 7.9 % (3.3-12.6); NEUTROPHILS ABSOLUTE AUTO 8.64 K/uL (1.0-7.6); NEUTROPHILS PERCENT AUTO 84.5 % (40.0-78.1); PLATELET COUNT,PLT 296 K/uL (130-375); RED BLOOD CELL COUNT 4.57 M/uL (3.77-5.24); WHITE BLOOD CELL COUNT,WBC 10.2 K/uL (3.2-11.0)
[2023-05-15 15:40] LABS: BASOPHILS ABSOLUTE AUTO 0.01 K/uL (0.00-0.10)
[2023-05-15 16:00] LABS: A/G RATIO 0.9 (1.2-2.2); ALANINE AMINOTRANSFERASE,ALT 28 U/L (12-78); ALBUMIN 3.2 g/dL (3.4-5.0); ALKALINE PHOSPHATASE 148 U/L (46-116); ASPARTATE AMNIOTRANSFERASE,AST 39 U/L (15-37); BILIRUBIN TOTAL 0.6 mg/dL (0.2-1.0); BLOOD UREA NITROGEN,BUN 19 mg/dL (7-18); CALCIUM 8.4 mg/dL (8.5-10.1); CARBON DIOXIDE,CO2 29 mmol/L (21-32); CHLORIDE,CL 92 mmol/L (100-108); CREATININE 1.1 mg/dL (0.6-1.0); EST CRCL DRUG DOSING (CG) 38.24 mL/min; ESTIMATED GFR 53 mL/min (>60); GLUCOSE RANDOM 100 mg/dL (74-106); POTASSIUM,K 3.5 mmol/L (3.6-5.2); PROTEIN TOTAL,TP 6.8 g/dL (6.4-8.2); SODIUM,NA 133 mmol/L (140-148)
[2023-05-15 16:01] LABS: ANION GAP 15.5 mmol/L (5.0-14.0)
[2023-05-15 16:38] LABS: BILIRUBIN,URINE NEGATIVE (NEGATIVE); COLOR,URINE YELLOW (YELLOW); GLUCOSE,URINE NEGATIVE (NEGATIVE); KETONES,URINE TRACE mg/dL (NEGATIVE); LEUKOCYTE ESTERASE,URINE NEGATIVE (NEGATIVE); NITRITE,URINE NEGATIVE (NEGATIVE); OCCULT BLOOD,URINE NEGATIVE (NEGATIVE); PH,URINE 5.5 (5.0-8.0); PROTEIN,URINE NEGATIVE (NEGATIVE); UROBILINOGEN,URINE 0.2 EU/dL (0.2-1.0)
[2023-05-15 16:47] LABS: AMORPHOUS SEDIMENT,URINE NOT SEEN; APPEARANCE,URINE SLIGHTLY CLOUDY (CLEAR); BACTERIA,URINE FEW; EPITHELIAL CELLS,URINE FEW; MUCUS,URINE FEW; RBC,URINE 0-5 (0-5); WBC,URINE 0-5 (0-5)
[2023-05-15] MEDS ORDERED: Sodium Chloride 0.9% 50 ML IV SCH (17:00)
[2023-05-15] MEDS ORDERED: Iopamidol 612 MG/ML 100 ML Bottle IV SCH (17:00)
[2023-05-15] MEDS ORDERED: HYDROmorphone 1 MG/ML Syringe IVPUSH ONE (17:32)
[2023-05-15 18:10] VITALS: BP 117/78; PULSE 59
[2023-05-15] MEDS ORDERED: Factor IX Complex Human 500 UNIT VIAL IVPUSH ONE ×2 (18:58→19:02)
[2023-05-15] MEDS ORDERED: HYDROmorphone 0.5 MG/0.5 ML Syringe IVPUSH PRN (19:11)
[2023-05-15] MEDS ORDERED: Naloxone 0.4 MG/ML SDV IVPUSH PRN (19:11)
[2023-05-15 19:41] LABS: HEMATOCRIT 39.3 % (34.3-46.0); HEMOGLOBIN 13.5 g/dL (11.2-15.5)
[2023-05-15 20:03] LABS: CALCIUM 8.3 mg/dL (8.5-10.1); EST CRCL DRUG DOSING (CG) 42.06 mL/min; POTASSIUM,K 3.7 mmol/L (3.6-5.2)
[2023-05-15 20:04] LABS: ANION GAP 12.7 mmol/L (5.0-14.0)
[2023-05-15 20:11] LABS: INR 1.3; PROTHROMBIN TIME 12.7 sec (9.2-10.6)
== END 2023-05-15 20:40 ==
LOC: JP.ED 14:53
DX: E88.01 Alpha-1-antitrypsin deficiency (principal); I48.20 Chronic atrial fibrillation, unspecified; J44.9 Chronic obstructive pulmonary disease, unspecified; S30.1XXA Contusion of abdominal wall, initial encounter; E78.00 Pure hypercholesterolemia, unspecified; K21.9 Gastro-esophageal reflux disease without esophagitis; I10 Essential (primary) hypertension; Z90.49 Acquired absence of other specified parts of digestive tract; Z88.0 Allergy status to penicillin; Z88.1 Allergy status to other antibiotic agents; Z79.01 Long term (current) use of anticoagulants; Z79.899 Other long term (current) drug therapy
CPT/HCPCS: 36415; 74177; 80048; 80053; 81001; 83605; 83690; 85014; 85018; 85025; 85610; 85730; 86850; 86900; 86901; 96374; 96375; 99285; J1170; J2405; J3010; J3490; J7030; J7168; Q9967

== ENCOUNTER 2024-03-03 21:39 | Inpatient (IN) | payer MEDICARE, OTHER ==
[2024-03-03 22:24] LABS: BASOPHILS ABSOLUTE AUTO 0.07 K/uL (0.00-0.10); BASOPHILS PERCENT AUTO 0.9 % (0.1-1.3); EOSINOPHILS PERCENT AUTO 0.3 % (0.0-5.4); HEMATOCRIT 44.5 % (34.3-46.0); HEMOGLOBIN 15.6 g/dL (11.2-15.5); IMMATURE GRAN PERCENT AUTO 0.3 % (0.0-0.7); LYMPHOCYTES ABSOLUTE AUTO 0.63 K/uL (0.8-3.3); LYMPHOCYTES PERCENT AUTO 8.3 % (11.4-47.7); MEAN CORPUSCULAR HEMOGLOBIN 31.6 pg (31.6-35.5); MEAN CORPUSCULAR HGB CONC 35.1 g/dL (31.6-35.5); MEAN CORPUSCULAR VOLUME 90.1 fL (81.4-99.0); MONOCYTES ABSOLUTE AUTO 0.43 K/uL (0.20-0.90); MONOCYTES PERCENT AUTO 5.6 % (3.3-12.6); NEUTROPHILS ABSOLUTE AUTO 6.45 K/uL (1.0-7.6); NEUTROPHILS PERCENT AUTO 84.6 % (40.0-78.1); PLATELET COUNT,PLT 222 K/uL (130-375); RED BLOOD CELL COUNT 4.94 M/uL (3.77-5.24); WHITE BLOOD CELL COUNT,WBC 7.6 K/uL (3.2-11.0)
[2024-03-03] MEDS: HYDROmorphone 0.5 MG/0.5 ML Syringe IVPUSH ONE ×2 (22:24→23:33)
[2024-03-03 22:25] LABS: EOSINOPHILS ABSOLUTE AUTO 0.02 K/uL (0.00-0.40); IMMATURE GRAN ABSOLUTE AUTO 0.02 K/uL (0.00-0.23)
[2024-03-03 22:46] LABS: A/G RATIO 1.3 (1.2-2.2); ALANINE AMINOTRANSFERASE,ALT 31 U/L (12-78); ALBUMIN 4.5 g/dL (3.4-5.0); ALKALINE PHOSPHATASE 156 U/L (46-116); ASPARTATE AMNIOTRANSFERASE,AST 33 U/L (15-37); BILIRUBIN TOTAL 0.9 mg/dL (0.2-1.0); BLOOD UREA NITROGEN,BUN 11 mg/dL (7-18); CALCIUM 10.1 mg/dL (8.5-10.1); CARBON DIOXIDE,CO2 32 mmol/L (21-32); CHLORIDE,CL 96 mmol/L (100-108); EST CRCL DRUG DOSING (CG) 42.06 mL/min; ESTIMATED GFR 60 mL/min (>60); GLUCOSE RANDOM 132 mg/dL (74-106); POTASSIUM,K 3.8 mmol/L (3.6-5.2); PROTEIN TOTAL,TP 7.9 g/dL (6.4-8.2); SODIUM,NA 137 mmol/L (140-148)
[2024-03-03 22:47] LABS: ANION GAP 12.8 mmol/L (5.0-14.0)
[2024-03-03] MEDS: Sodium Chloride 0.9% 1,000 ML IV SCH (23:15)
[2024-03-04] MEDS: Iopamidol 612 MG/ML 100 ML Bottle IV STA (00:32)
[2024-03-04] MEDS: Sodium Chloride 0.9% 80 ML IV STA (00:32)
[2024-03-04] MEDS: Meropenem 500 MG in Sodium Chloride 0.9% 50 ML IV ONE (01:08)
[2024-03-04] MEDS: Ondansetron 4 MG/2 ML SDV IVPUSH ONE (02:14)
[2024-03-04] MEDS: HYDROmorphone 0.5 MG/0.5 ML Syringe IVPUSH STA (02:20)
[2024-03-04] MEDS ORDERED: Albuterol 0.083% 2.5 MG/3 ML Neb Soln NEB PRN (03:03)
[2024-03-04] MEDS ORDERED: Ondansetron 4 MG Tab.DIS PO PRN (03:03)
[2024-03-04] MEDS ORDERED: Melatonin 3 MG Tab PO PRN (03:03)
[2024-03-04] MEDS ORDERED: Benzonatate 100 MG Cap PO PRN (03:23)
[2024-03-04] MEDS: Sodium Chloride 0.9% 1,000 ML IV SCH (04:03)
[2024-03-04] MEDS: Pantoprazole 40 MG Vial IV ONE (04:04)
[2024-03-04 05:08] LABS: HEMOGLOBIN 15.4 g/dL (11.2-15.5); MEAN CORPUSCULAR HEMOGLOBIN 31.5 pg (31.6-35.5); MEAN CORPUSCULAR HGB CONC 34.2 g/dL (31.6-35.5); RED BLOOD CELL COUNT 4.89 M/uL (3.77-5.24); WHITE BLOOD CELL COUNT,WBC 9.6 K/uL (3.2-11.0)
[2024-03-04 05:33] LABS: A/G RATIO 1.3 (1.2-2.2); ALANINE AMINOTRANSFERASE,ALT 36 U/L (12-78); ALBUMIN 4.2 g/dL (3.4-5.0); ALKALINE PHOSPHATASE 148 U/L (46-116); ASPARTATE AMNIOTRANSFERASE,AST 32 U/L (15-37); BILIRUBIN TOTAL 1.3 mg/dL (0.2-1.0); BLOOD UREA NITROGEN,BUN 12 mg/dL (7-18); CALCIUM 9.8 mg/dL (8.5-10.1); CARBON DIOXIDE,CO2 32 mmol/L (21-32); CHLORIDE,CL 100 mmol/L (100-108); EST CRCL DRUG DOSING (CG) 42.06 mL/min; ESTIMATED GFR 60 mL/min (>60); GLUCOSE RANDOM 146 mg/dL (74-106); MAGNESIUM 2.1 mg/dL (1.8-2.4); POTASSIUM,K 4.6 mmol/L (3.6-5.2); PROTEIN TOTAL,TP 7.5 g/dL (6.4-8.2); SODIUM,NA 138 mmol/L (140-148)
[2024-03-04 05:36] LABS: ANION GAP 10.6 mmol/L (5.0-14.0)
[2024-03-04] MEDS: Albuterol/Ipratropium 3.0-0.5 MG/3 ML Neb Soln NEB SCH ×2 (06:58→10:33)
[2024-03-04] MEDS: HYDROmorphone 1 MG/ML Syringe IVPUSH PRN (07:11)
[2024-03-04] MEDS: Ondansetron 4 MG/2 ML SDV IV PRN (07:11)
[2024-03-04] MEDS: Formoterol/Mometasone 100-5 MCG 8.8 GM Inhaler IH SCH (08:51)
[2024-03-04] MEDS ORDERED: Non-Formulary Medication 1 Each (Fluticasone/Salmeterol [Advair 100-50] 14 PUFF/DISKUS Dis PO SCH (09:00)
[2024-03-04] MEDS: Meropenem 1 GM in Sodium Chloride 0.9% 100 ML IV SCH (09:23)
[2024-03-04] MEDS ORDERED: Propofol 200 MG/20 ML SDV ONE (10:01)
[2024-03-04] MEDS ORDERED: Dexamethasone 4 MG/ML SDV ONE (10:01)
[2024-03-04] MEDS ORDERED: Rocuronium 50 MG/5 ML Vial ONE (10:01)
[2024-03-04] MEDS ORDERED: Ondansetron 4 MG/2 ML SDV ONE (10:01)
[2024-03-04] MEDS ORDERED: fentaNYL 250 MCG/5 ML SDV ONE (10:01)
[2024-03-04] MEDS ORDERED: Glycopyrrolate 0.2 MG/ML 5 ML MDV ONE (10:01)
[2024-03-04] MEDS ORDERED: Neostigmine Methylsulfate 10 MG/10 ML MDV ONE (10:01)
[2024-03-04] MEDS: Indocyanine Green 25 MG SDV IV ONE (10:03)
[2024-03-04] MEDS ORDERED: Sodium Chloride 0.9% 10 ML ONE (10:29)
[2024-03-04] MEDS ORDERED: ePHEDrine 50 MG/ML SDV ONE (10:29)
[2024-03-04] MEDS ORDERED: Sugammadex Sodium 200 MG/2 ML VIAL IV ONE (10:44)
[2024-03-04] MEDS: Ropivacaine 30 ML, dexAMETHasone 8 MG, EPINEPHrine 0.4 MG, Sodium Chloride 0.9% 47.6 ML NERVRT SCH (10:45)
[2024-03-04] MEDS: Bupivacaine 0.5% 50 ML MDV ONE (11:05)
[2024-03-04] MEDS: Lidocaine 1% with EPINEPHrine 1:100,000 50 ML MDV ONE (11:06)
[2024-03-04] MEDS: Acetaminophen 325 MG Tab PO PRN (15:05)
[2024-03-04] MEDS: Pravastatin 20 MG Tab PO SCH (20:36)
[2024-03-04] MEDS: oxyCODONE 5 MG Tab PO PRN (22:11)
[2024-03-05 04:55] LABS: HEMATOCRIT 37.9 % (34.3-46.0); HEMOGLOBIN 13.2 g/dL (11.2-15.5); MEAN CORPUSCULAR HEMOGLOBIN 31.7 pg (31.6-35.5); MEAN CORPUSCULAR HGB CONC 34.8 g/dL (31.6-35.5); MEAN CORPUSCULAR VOLUME 91.1 fL (81.4-99.0); RED BLOOD CELL COUNT 4.16 M/uL (3.77-5.24); WHITE BLOOD CELL COUNT,WBC 14.4 K/uL (3.2-11.0)
[2024-03-05 05:25] LABS: A/G RATIO 1.1 (1.2-2.2); ALANINE AMINOTRANSFERASE,ALT 60 U/L (12-78); ALBUMIN 3.4 g/dL (3.4-5.0); ALKALINE PHOSPHATASE 114 U/L (46-116); ANION GAP 12.6 mmol/L (5.0-14.0); ASPARTATE AMNIOTRANSFERASE,AST 69 U/L (15-37); BLOOD UREA NITROGEN,BUN 24 mg/dL (7-18); CALCIUM 9.3 mg/dL (8.5-10.1); CARBON DIOXIDE,CO2 26 mmol/L (21-32); CHLORIDE,CL 98 mmol/L (100-108); CREATININE 1.6 mg/dL (0.6-1.0); EST CRCL DRUG DOSING (CG) 26.29 mL/min; ESTIMATED GFR 34 mL/min (>60); GLUCOSE RANDOM 140 mg/dL (74-106); POTASSIUM,K 4.6 mmol/L (3.6-5.2); PROTEIN TOTAL,TP 6.5 g/dL (6.4-8.2); SODIUM,NA 132 mmol/L (140-148)
[2024-03-05] MEDS ORDERED: Pantoprazole 40 MG Vial IV SCH (07:30)
[2024-03-05] MEDS: Pantoprazole 40 MG Tab.CR PO SCH (07:34)
[2024-03-05 11:22] VITALS: BP 105/60; PULSE 62
== END 2024-03-05 11:10 | disposition home or self-care (01) | DRG 418 ==
LOC: JP.ED 21:39 → JP.MS 03-04 02:24
PROVIDERS: ADMIT Registered Nurse; ATTEND Internal Medicine
PROC: 8E0W4CZ Robotic Assisted Procedure of Trunk Region, Percutaneous Endoscopic Approach (ICD-10-PCS; 2024-03-04)
PROC: 0FT44ZZ Resection of Gallbladder, Percutaneous Endoscopic Approach (ICD-10-PCS; principal; 2024-03-04 10:40)
DX: K80.50 Calculus of bile duct without cholangitis or cholecystitis without obstruction (principal); K80.60 Calculus of gallbladder and bile duct with cholecystitis, unspecified, without obstruction; I50.32 Chronic diastolic (congestive) heart failure; K82.1 Hydrops of gallbladder; I48.91 Unspecified atrial fibrillation; H54.7 Unspecified visual loss; I10 Essential (primary) hypertension; E78.00 Pure hypercholesterolemia, unspecified; K21.9 Gastro-esophageal reflux disease without esophagitis; G43.909 Migraine, unspecified, not intractable, without status migrainosus; Z79.02 Long term (current) use of antithrombotics/antiplatelets; J44.9 Chronic obstructive pulmonary disease, unspecified; E88.01 Alpha-1-antitrypsin deficiency; I11.0 Hypertensive heart disease with heart failure; Z88.0 Allergy status to penicillin; Z88.1 Allergy status to other antibiotic agents; Z79.51 Long term (current) use of inhaled steroids; Z79.899 Other long term (current) drug therapy; Z79.01 Long term (current) use of anticoagulants; Z95.0 Presence of cardiac pacemaker; Z90.49 Acquired absence of other specified parts of digestive tract; Z90.722 Acquired absence of ovaries, bilateral; Z87.891 Personal history of nicotine dependence; Z99.81 Dependence on supplemental oxygen
CPT/HCPCS: 36415; 74177; 80053; 83690; 85025; 96361; 96374; 96375; 96376 ×2; 99285; J1170 ×3; J2185; J2405; J3490 ×2; J7030; Q9967; 00790-QZ; 71046; 71046-26; 83735; 85027; 87070; 87075; 87077; 87186; 87205; 93010; 94640; 99223; 99232; 99238; A9270-GY; J0171; J0665; J1100; J1596; J2470; J2704; J2710; J2795; J3010; J7620

== ENCOUNTER 2024-07-17 14:23 | Emergency (ER) | payer MEDICARE, OTHER ==
[2024-07-17 15:21] LABS: BASOPHILS ABSOLUTE AUTO 0.07 K/uL (0.00-0.10); BASOPHILS PERCENT AUTO 1.1 % (0.1-1.3); EOSINOPHILS PERCENT AUTO 0.3 % (0.0-5.4); HEMATOCRIT 39.6 % (34.3-46.0); HEMOGLOBIN 13.7 g/dL (11.2-15.5); IMMATURE GRAN PERCENT AUTO 0.2 % (0.0-0.7); LYMPHOCYTES ABSOLUTE AUTO 0.69 K/uL (0.8-3.3); LYMPHOCYTES PERCENT AUTO 11.2 % (11.4-47.7); MEAN CORPUSCULAR HEMOGLOBIN 32.6 pg (31.6-35.5); MEAN CORPUSCULAR HGB CONC 34.6 g/dL (31.6-35.5); MEAN CORPUSCULAR VOLUME 94.3 fL (81.4-99.0); MONOCYTES ABSOLUTE AUTO 0.47 K/uL (0.20-0.90); MONOCYTES PERCENT AUTO 7.6 % (3.3-12.6); NEUTROPHILS ABSOLUTE AUTO 4.91 K/uL (1.0-7.6); NEUTROPHILS PERCENT AUTO 79.6 % (40.0-78.1); PLATELET COUNT,PLT 256 K/uL (130-375); WHITE BLOOD CELL COUNT,WBC 6.2 K/uL (3.2-11.0)
[2024-07-17 15:23] LABS: EOSINOPHILS ABSOLUTE AUTO 0.02 K/uL (0.00-0.40); IMMATURE GRAN ABSOLUTE AUTO 0.01 K/uL (0.00-0.23)
[2024-07-17 15:51] VITALS: BP 108/60; PULSE 62
== END 2024-07-17 17:12 | disposition home or self-care (01) ==
LOC: JP.ED 14:23
DX: R04.0 Epistaxis (principal); I10 Essential (primary) hypertension; E78.00 Pure hypercholesterolemia, unspecified; I48.91 Unspecified atrial fibrillation; Z88.1 Allergy status to other antibiotic agents; Z88.0 Allergy status to penicillin; Z79.899 Other long term (current) drug therapy; Z95.0 Presence of cardiac pacemaker
CPT/HCPCS: 30901; 36415; 85025; 99284-25

== ENCOUNTER 2025-05-26 13:07 | Emergency (ER) | payer MEDICARE, OTHER ==
[2025-05-26 16:04] LABS: BASOPHILS ABSOLUTE AUTO 0.05 K/uL (0.00-0.10); BASOPHILS PERCENT AUTO 0.8 % (0.1-1.3); EOSINOPHILS ABSOLUTE AUTO 0.02 K/uL (0.00-0.40); EOSINOPHILS PERCENT AUTO 0.3 % (0.0-5.4); IMMATURE GRAN ABSOLUTE AUTO 0.03 K/uL (0.00-0.23); IMMATURE GRAN PERCENT AUTO 0.5 % (0.0-0.7); LYMPHOCYTES ABSOLUTE AUTO 0.62 K/uL (0.8-3.3); LYMPHOCYTES PERCENT AUTO 10.1 % (11.4-47.7); MONOCYTES ABSOLUTE AUTO 0.45 K/uL (0.20-0.90); MONOCYTES PERCENT AUTO 7.4 % (3.3-12.6); NEUTROPHILS ABSOLUTE AUTO 4.95 K/uL (1.0-7.6); NEUTROPHILS PERCENT AUTO 80.9 % (40.0-78.1); PLATELET COUNT,PLT 281 K/uL (130-375); RED BLOOD CELL COUNT 4.53 M/uL (3.77-5.24); WHITE BLOOD CELL COUNT,WBC 6.1 K/uL (3.2-11.0)
[2025-05-26 16:18] LABS: APPEARANCE,URINE SLIGHTLY CLOUDY (CLEAR); GLUCOSE,URINE NEGATIVE (NEGATIVE); OCCULT BLOOD,URINE NEGATIVE (NEGATIVE)
[2025-05-26 16:32] LABS: SQUAMOUS EPITHELIAL CELLS,UR FEW /HPF; UROTHELIAL CELLS,URINE NOT SEEN /HPF
[2025-05-26 16:34] LABS: A/G RATIO 0.9 (1.2-2.2); ALANINE AMINOTRANSFERASE,ALT 37 U/L (12-78); ASPARTATE AMNIOTRANSFERASE,AST 46 U/L (15-37); BILIRUBIN TOTAL 1.4 mg/dL (0.2-1.0); BLOOD UREA NITROGEN,BUN 25 mg/dL (7-18); CARBON DIOXIDE,CO2 39 mmol/L (21-32); CHLORIDE,CL 94 mmol/L (100-108); CREATININE 1.1 mg/dL (0.6-1.0); EST CRCL DRUG DOSING (CG) 36.95 mL/min; ESTIMATED GFR 53 mL/min (>60); GLUCOSE RANDOM 115 mg/dL (74-106); PROTEIN TOTAL,TP 7.3 g/dL (6.4-8.2); SODIUM,NA 143 mmol/L (140-148)
[2025-05-26 16:37] LABS: POTASSIUM,K 2.9 mmol/L (3.6-5.2); TROPONIN I HIGH SENSITIVITY 168.1 pg/mL (<=60.3)
[2025-05-26] MEDS: Sodium Chloride 0.9% 10 ML Syringe FLUSH ONE (19:01)
[2025-05-26] MEDS: Iopamidol 612 MG/ML 100 ML Bottle IV SCH (19:02)
[2025-05-26] MEDS: Potassium Chloride 20 MEQ Tab.ER PO ONE (19:41)
[2025-05-26] MEDS: Furosemide 40 MG/4 ML VIAL IVPUSH ONE (19:42)
[2025-05-26] MEDS: Magnesium Sulfate 2 GM/50 mL 2 GM in Premix Bag 1 BAG IV ONE (19:45)
[2025-05-26 21:22] VITALS: BP 112/70; PULSE 66
== END 2025-05-26 21:40 | disposition home or self-care (01) ==
LOC: JP.ED 13:07
DX: J98.11 Atelectasis (principal); E88.01 Alpha-1-antitrypsin deficiency; I10 Essential (primary) hypertension; E78.00 Pure hypercholesterolemia, unspecified; Z88.1 Allergy status to other antibiotic agents; Z88.0 Allergy status to penicillin; Z79.899 Other long term (current) drug therapy; Z90.49 Acquired absence of other specified parts of digestive tract
CPT/HCPCS: 36415; 71046; 71260; 80053; 81001; 84484; 85025; 93005; 94640; 96365; 96366; 96375; 99285; A9270; J1938; J3475; Q9967